=== PATIENT | female | born 1950 | race Caucasian/White ===

== ENCOUNTER 2019-04-14 14:02 | Inpatient (IN) | payer OTHER ==
[~2019-04-14] VITALS: Ht 167.6 cm; Wt 83.5 kg
[2019-04-14] VITALS (8 sets, daily range): BP systolic 90–150; BP diastolic 62–77
[~2019-04-14 14:02] MED LIST: ATENOLOL50 MG PO; GABAPENTIN300 MG PO; LEVOTHYROXINE112 MCG PO
[2019-04-14] MEDS ORDERED: ONDANSETRON HCL INJ 2MG/ML 2ML 2 MG/ML VIAL IV PRN (14:30)
[2019-04-14] MEDS ORDERED: SODIUM CHLORIDE 0.9% 1000ML 1,000 ML IV SCH (14:30)
[2019-04-14] MEDS ORDERED: HYDRALAZINE HCL 20 MG/ML VIAL IV PRN (14:30)
--- NOTE | 2019-04-14 15:12 | NUR ---
WENT TO PT ROOM TO START IV PT UP IN BED AWAKE ,LAB AT BEDSIDE TO DRAW LAB IN PROCESS OF LBS BEING DRAWN PT STARTED HAVING SEIZURE ,.SEIZURES LASTED APPROXIMATELY 3 MINUTES ,TRISTAN HUA NOTIFIED AND SPOKE WITH DR FORTUNE ORDERS WRITTEN,RAPID RESPONSE CALLED
[2019-04-14] MEDS ORDERED: LORAZEPAM INJ 2 MG/ML VIAL ONE ×2 (15:31→15:39)
[2019-04-14 15:56] LABS: ALANINE AMINOTRANSFERASE 26 IU/L (0-55); ALBUMIN 3.7 g/dL (3.5-5.0); ALBUMIN/GLOBULIN RATIO 1.4 (0.8-2.0); ALKALINE PHOSPHATASE 96 IU/L (40-150); ANION GAP 19.8 mmol/L (8-16); BLOOD UREA NITROGEN 9 mg/dL (7-26); BUN/CREATININE RATIO 14 (6-25); CALCIUM 8.5 mg/dL (8.4-10.2); CARBON DIOXIDE 16 mmol/L (22-29); CHLORIDE 87 mmol/L (98-107); CREATININE, SERUM 0.65 mg/dL (0.57-1.11); EST GLOMERULAR FILTRATION RATE > 60 ML/MIN (60-); GLUCOSE 191 mg/dL (74-118); MAGNESIUM 2.1 MG/DL (1.3-2.1); PHOSPHORUS 3.8 MG/DL (2.3-4.7); POTASSIUM 3.8 mmol/L (3.5-5.1)
[2019-04-14 15:57] LABS: SODIUM 119 mmol/L (136-145)
[2019-04-14] MEDS ORDERED: MIDAZOLAM HCL 2 MG/2 ML VIAL ONE ×2 (16:03→16:17)
[2019-04-14] MEDS ORDERED: SODIUM CHLORIDE 3% 500 ML IV ONE (16:15)
[2019-04-14 16:36] LABS: AMYLASE 47 U/L (25-125); LIPASE 14 U/L (8-78)
[2019-04-14] MEDS ORDERED: ETOMIDATE 2 MG/ML 10 ML INJ IV ONE (16:48)
[2019-04-14] MEDS ORDERED: SODIUM CHLORIDE 3% 500 ML BAG IV ONE (16:49)
[2019-04-14] MEDS ORDERED: SUCCINYLCHOLINE 200 MG/10 ML SYR IV ONE ×2 (16:49)
--- NOTE | 2019-04-14 17:50 | Diagnostic Imaging Report ---
Chest, 1 view, 04/14/2019. History: ET tube repositioning. Comparison: X-ray from earlier today. Findings: ET tube has been retracted and now terminates at the level of the clavicles. Left IJ central line is unchanged in position. The cardiomediastinal silhouette and pulmonary vasculature are within normal limits for a portable exam. Bilateral patchy pulmonary opacities are unchanged. There are no acute osseous or soft tissue abnormalities. Impression: ET tube in proper position. Signed by: Yared Ohara on 04/14/2019 5:46 PM
[2019-04-14 18:18] LABS: ANION GAP 12.1 mmol/L (8-16); BLOOD UREA NITROGEN 8 mg/dL (7-26); BUN/CREATININE RATIO 15 (6-25); CALCIUM 7.7 mg/dL (8.4-10.2); CARBON DIOXIDE 20 mmol/L (22-29); CHLORIDE 92 mmol/L (98-107); CREATININE, SERUM 0.54 mg/dL (0.57-1.11); EST GLOMERULAR FILTRATION RATE > 60 ML/MIN (60-); GLUCOSE 103 mg/dL (74-118); POTASSIUM 3.1 mmol/L (3.5-5.1); SODIUM 121 mmol/L (136-145)
[2019-04-14] MEDS ORDERED: POTASSIUM CHLORIDE 20MEQ/100ML 200 ML IV ONE (18:45)
[2019-04-14] MEDS ORDERED: FAMOTIDINE 20 MG/2 ML VIAL IV ONE (18:49)
--- NOTE | 2019-04-14 18:56 | Diagnostic Imaging Report ---
EXAMINATION: CHEST SINGLE (PORTABLE) INDICATION: ^tube placement ^Y COMPARISON: Chest radiograph 12/29/2018 FINDINGS: AP view TUBES and LINES: Endotracheal tube with tip in the proximal right mainstem bronchus. Left IJ central venous catheter with tip overlying the mid SVC. Additional metastatic linear catheters overlying the upper neck. LUNGS: Lungs are well inflated. New patchy airspace opacities in both medial upper lobes and lower lobes. PLEURA: No pleural effusion or pneumothorax. HEART AND MEDIASTINUM: The cardiomediastinal silhouette is unremarkable.. BONES AND SOFT TISSUES: No acute osseous lesion. Soft tissues are unremarkable. UPPER ABDOMEN: No free air under the diaphragm. IMPRESSION: Interval intubation with tip in the proximal right mainstem bronchus. Recommend retraction of at least 3.2 cm. New left IJ central venous catheter with tip overlying the mid SVC. New bilateral airspace opacities suggestive of a combination of atelectasis and aspiration. These findings were communicated to Mr. Kendall, nurse, on 04/14/2019 at 5:20 PM. The endotracheal tube was already retrieved and a new x-ray would be obtained. Signed by: Dr. Mireya Leal M.D. on 04/14/2019 5:26 PM
[2019-04-14] MEDS ORDERED: PIPER-TAZ 3.375 GM 50 ML IV SCH (19:00)
[2019-04-14] MEDS ORDERED: LEVETIRACETAM 500MG/5ML VIAL 500 MG in SODIUM CHLORIDE 0.9% 100 ML 100 ML IV ONE (19:00)
[2019-04-14 19:29] LABS: ABG PH 7.36 (7.31-7.41)
[2019-04-14 19:30] LABS: ABG HCO3 23 mmol/L (23-28); ABG PCO2 41 mmHg (41-51); ABG PO2 250 mmHg (80-105)
--- NOTE | 2019-04-14 19:30 | NUR ---
PATIENT WAS RECEIVED IN SUPINE POSITION, FAMILY AT BEDSIDE, ON FENTANYL 100MCG/HR DRIP,VERSED 5MG/HR, 3%NS AT 30CC/HR, VENT SETTINGS 100% PEEP 5, RR 15, TV 450, PRVC SETTING, BRASS POURER AT BEDSIDE, PATIENT AROUSABLE TO PAINFUL STIMULI.
[2019-04-14 19:33] LABS: AMPHETAMINES SCREEN,URINE NEGATIVE (NEGATIVE); BENZODIAZEPINES SCREEN,URINE NEGATIVE (NEGATIVE); PHENCYCLIDINE SCREEN,URINE NEGATIVE (NEGATIVE)
[2019-04-14 19:55] LABS: BILIRUBIN,URINE NEGATIVE (NEGATIVE); CLARITY,URINE CLEAR (CLEAR); COLOR,URINE YELLOW (YELLOW); KETONES,URINE NEGATIVE (NEGATIVE); LEUKOCYTE ESTERASE ,URINE NEGATIVE (NEGATIVE); NITRITE,URINE NEGATIVE (NEGATIVE); PROTEIN,URINE DIPSTICK TRACE (NEGATIVE); URINE UROBILINOGEN 0.2 mg/dL (0.2 - 1)
[2019-04-14 19:56] LABS: BACTERIA,URINE MODERATE /HPF
[2019-04-14 20:16] LABS: POTASSIUM,URINE 58.8 mmol/L; SODIUM,URINE 75 mmol/L
[2019-04-14 20:24] LABS: BASOPHILS % 0.2 % (0.0-1.0); EOSINOPHILS % 0.1 % (0.0-6.0); HEMATOCRIT 29.6 % (34.2-44.1); HEMOGLOBIN 10.6 g/dL (12.0-16.0); LYMPHOCYTES # (AUTO) 1.7 (1.0-3.2); LYMPHOCYTES % 13.2 % (18.0-39.1); MEAN CORPUSCULAR HEMOGLOBIN 30.2 pg (28-32); MEAN CORPUSCULAR HGB CONC 35.8 g/dL (31-35); MEAN CORPUSCULAR VOLUME 84.3 fL (81-99); MONOCYTES # (AUTO) 0.7 (0.2-0.8); MONOCYTES % 5.7 % (4.4-11.3); NEUTROPHILS # (AUTO) 10.1 (2.1-6.9); NEUTROPHILS % 80.2 % (38.7-80.0); PLATELET COUNT 267 x10e3/uL (140-360); RED BLOOD COUNT 3.51 x10e6/uL (3.6-5.1); RED CELL DISTRIBUTION WIDTH 13.4 % (11.7-14.4)
[2019-04-14 20:24] LABS: ANION GAP 11.2 mmol/L (8-16); BLOOD UREA NITROGEN 8 mg/dL (7-26); BUN/CREATININE RATIO 15 (6-25); CARBON DIOXIDE 22 mmol/L (22-29); CHLORIDE 92 mmol/L (98-107); CREATININE, SERUM 0.53 mg/dL (0.57-1.11); EST GLOMERULAR FILTRATION RATE > 60 ML/MIN (60-); GLUCOSE 94 mg/dL (74-118); POTASSIUM 3.2 mmol/L (3.5-5.1); SODIUM 122 mmol/L (136-145)
--- NOTE | 2019-04-14 20:30 | NUR ---
md leonor giordano, no new orders, will call back after 10pm lab draws
--- NOTE | 2019-04-14 20:36 | NUR ---
dr zaid giordano, no answer, will inform dr bartlett
[2019-04-14] MEDS ORDERED: FENTANYL CITRATE INJ 2000 MCG in SODIUM CHLORIDE 0.9% 210 ML IV PRN (21:15)
[2019-04-14] MEDS: MIDAZOLAM HCL 25 MG in SODIUM CHLORIDE 0.9% 45 ML IV PRN ×2 (21:15→22:00)
--- NOTE | 2019-04-14 21:21 | NUR ---
dr bartlett paged and returned phone call, read back abg results, instructed to wean 02 concentration to 60% if possible, start lovenox 40mg sq daily, spoke to dr bartlett in regards to not being able to reach dr mar, dr bartlett stated he will address that . Addendum: 04/14/19 at 2133 by Chris Leonard RN read back line placement from chest xray, gave orders for ok to use cvc/picc line
[2019-04-14] MEDS: AZITHROMYCIN 250MG/NS 100 ML 100 ML IV SCH (21:48)
--- NOTE | 2019-04-14 22:16 | History and Physical ---
HISTORY OF PRESENT ILLNESS: This patient came into the emergency room through another ER with hyponatremia and acute mental status changes. The patient was transferred from a [place] by see ambulatory services from the outlying ER. When she was seen in the ER, the patient had a hyponatremia of 122. She was started to have altered mental status. She had walked into the ER with no complications. The patient did have a history of nausea and vomiting and diarrhea for the last 24 hours. The patient was feeling fine except for the fact that she was getting mental status changes and the reason for being in the ER. The patient was transferred here and while in transport, the patient was under room, had an apparent seizure noted for about 2 minutes. A rapid response was called, and central line was started and the patient also was intubated. The patient had a similar episode in the last admission with hyponatremia. PAST SURGICAL HISTORY: 1. History of thyroid surgery, otherwise noncontributory. The patient also has a history of hyponatremia. 2. History of hypothyroidism. 3. History of hypertension to medicine she takes at home. MEDICATION: At home, atenolol 50 mg, gabapentin 300 mg, and levothyroxine 112 mcg. As far as gabapentin, the patient is taking it 3 times a day of 300 mg. She was up to 5 tablets a day, but she had cut it down to 4. REVIEW OF SYSTEMS: Negative for chest pain. No shortness of breath. Positive for nausea, vomiting, and diarrhea. No constipation. No rectal bleeding. No hematochezia. No hematemesis. The patient has been dehydrated for the last 24 hours or so. No diplopia. No blurry vision. No history of seizures in the past. PHYSICAL EXAMINATION: GENERAL: The patient is intubated at this time. VITAL SIGNS: Not recorded at this time. HEENT: The patient is intubated. CVS: S1 and S2 normal. Tachycardic. ABDOMEN: Nontender and nondistended, soft. EXTREMITIES: No clubbing, no cyanosis, no edema. LABORATORY DATA: Labs we have right now; the patient's sodium is 119, potassium 3.8, BUN of 9, creatinine 0.65, magnesium is 2.1, calcium 8.5, phosphorus 3.8, total protein 6.3. CBC from the imaging summoned from the other ER shows white count of 13,000 and hemoglobin of 12 and hematocrit of 35.9. The patient's urine was negative. The patient's CT scan done for acute mental status and altered mental status in the ER, outside in the ER, it was mild generalized parenchymal atrophy. Tiny basal ganglia lacunar infarct. No evidence of CT evidence of intracranial hemorrhage or acute strokes. The chest x-ray showed minimal peribronchial cuffing. Bronchitis is suspected without segmental bronchopneumonia. ASSESSMENT: At this time is; 1. Grand mal seizures. 2. Hyponatremia. 3. History of hyponatremia in the past. 4. History of hypertension. 5. History of hypothyroidism. PLAN: At this time would be to correct the sodium. Dr. Casiano is on consult. will be given. Also, we will continue monitoring her thyroid status and also her volume status. The patient will be given fluids and resuscitation. Every protection for seizures will be done and consult with Dr. Majano will be done too. Further recommendation per clinical course. We will continue to monitor the patient. Final diagnoses on discharge; hyponatremia, encephalopathy of unknown origin, hypothyroidism, and hypertension. Plan would be to continue monitor the patient. Further recommendation per clinical course and we will closely monitor the patient's lytes. MD CLARENCE Raymond/IVANA /[id number]
--- NOTE | 2019-04-14 22:45 | Consultation ---
DATE OF CONSULTATION: 04/14/2019 HISTORY OF PRESENT ILLNESS: A 69-year-old female who apparently according to family, developed severe nausea and vomiting after eating her dinner as well as diarrhea, which was profuse, which lasted all night. This morning, patient was found to be "incoherent, " but according to son-in-law, she was taken to a local emergency room, where she was found to have a serum sodium of 122. She had a CT scan of the brain done which was reported negative. Her white count was elevated at 13.8, hemoglobin was 12. Sodium was 122, potassium 3.8, calcium 9.2, creatinine 0.7, and total bilirubin 0.8. She was subsequently directly admitted here and she was somewhat confused, but talking, following commands according to RN and then she went into a grand mal seizure by the time I walked into the room, Rapid Response had already been called. The patient was quite agitated. She had a teeth clenched, breathing rapidly, did not open her eyes to any verbal stimuli, the nurses were holding her down, 1 mg Ativan was given, 2 mg Ativan was given in addition to that. The ER physician is right now in the process of intubating her and placing a central line. LABORATORY TESTS: Returned. Serum sodium was found to be 119, potassium 3.8, bicarbonate 16, this is post seizure, creatinine 0.65, phosphorus 3.8, magnesium 2.1, and calcium 8.5. I have sent a urine drug screen. CBC is pending. Chest x-ray is pending. The CT scan done at the [facility] showed mild generalized brain parenchymal atrophy related to patient's age, tiny bilateral basal ganglia lacunar infarcts, no evidence of intracranial hemorrhages, masses, or stroke. HOME MEDICATIONS: Include atenolol and levothyroxine. PAST MEDICAL HISTORY: She has existing history of hypothyroidism, recent history of hyponatremia, which was also precipitated by nausea, vomiting, and diarrhea. She presented with food poisoning, which was her presenting complaint. ALLERGIES: SHE IS ALLERGIC TO PENICILLIN. PHYSICAL EXAMINATION: VITAL SIGNS: Current blood pressure 119/90, pulse rate 110, and respiratory rate 24. HEAD AND NECK: Patient's teeth are clenched. Limited exam. LUNGS: Harsh vesicular breath sounds, end expiratory rhonchi, some scattered rales. HEART: Tachycardic. ABDOMEN: Soft, nontender. EXTREMITIES: Lower extremity, no edema. IMPRESSION: Hyponatremia with history of sudden onset nausea, vomiting, and diarrhea, this is most likely acute, status post grand mal seizure, now sedated with Ativan, intubated, currently IV normal saline running, we will give 3% hypertonic saline 100 mL over 30 minutes and then start at 30 mL an hour. We will do sodium levels q.2 hours. The metabolic acidosis is secondary to grand mal seizure. We will repeat chemistries and reassess. I ordered amylase, lipase, ammonia level and urine drug screen. CBC pending. Discussed with family members. We will limit the rate of rise in serum sodium by no more than 6 mEq in the next 12-24 hours. MD SIMRAN Pang/IVANA /[id number]
--- NOTE | 2019-04-14 22:48 | Diagnostic Imaging Report ---
EXAMINATION: Head CT without contrast. HISTORY:Altered mental status. COMPARISON:CT head from 12/29/2018. TECHNIQUE: Multidetector axial images were obtained from the foramen magnum to the vertex without contrast. The images were reconstructed using brain and bone algorithms. Thin section brain images were reformatted into coronal and sagittal planes. Dose modulation, iterative reconstruction, and/or weight based adjustment of the mA/kV was utilized to reduce the radiation dose to as low as reasonably achievable. Intravenous contrast: None IMAGE QUALITY: Acceptable. FINDINGS: Skull/scalp: No lytic or blastic. lesions. No surgical changes. Parenchyma: No abnormal density. No acute hemorrhage, mass or acute major vascular territorial infarct. Arteries: No density suggestive of thrombosis. Dural sinuses: No abnormal density suggestive of thrombosis. Ventricles: No hydrocephalus or displacement. Extra-axial spaces: No abnormal density. Brain volume: Mild generalized age-related cerebral volume loss. Craniocervical junction: No mass, Chiari malformation, or basilar invagination. Sella: No mass. Paranasal/mastoid sinuses: Under pneumatization, sclerosis and opacification of bilateral mastoid air cells possibly related to chronic inflammatory process. IMPRESSION: No acute intracranial abnormality. No significant change since CT head from 12/29/2018. Chronic findings: Generalized age-related cerebral volume loss. Signed by: Dr. Reena Martinez M.D. on 04/14/2019 10:45 PM
--- NOTE | 2019-04-14 23:00 | NUR ---
RESPIRATORY-SORAIDA AWARE OF GOAL OF O2 CONCENTRATION OF 60%, WILL WEAN ACCORDINGLY
[2019-04-14] MEDS: AZTREONAM 1 GM/NS 50 ML 50 ML IV SCH (23:07)
[2019-04-14] MEDS: ENOXAPARIN SOD INJ 40 MG/0.4 ML SYR SC SCH (23:07)
[2019-04-14 23:24] LABS: ANION GAP 9.4 mmol/L (8-16); BLOOD UREA NITROGEN 7 mg/dL (7-26); BUN/CREATININE RATIO 14 (6-25); CARBON DIOXIDE 22 mmol/L (22-29); CHLORIDE 98 mmol/L (98-107); CREATININE, SERUM 0.51 mg/dL (0.57-1.11); EST GLOMERULAR FILTRATION RATE > 60 ML/MIN (60-); GLUCOSE 93 mg/dL (74-118); POTASSIUM 3.4 mmol/L (3.5-5.1); SODIUM 126 mmol/L (136-145)
--- NOTE | 2019-04-14 23:35 | Consultation ---
DATE OF CONSULTATION: 04/14/2019 Pulmonary Critical Care Consultation REASON FOR THE CONSULT: Status post arrest, seizure. The patient is intubated. HISTORY OF PRESENT ILLNESS: Ms. Kiran is a 69-year-old female with no significant past medical history, was admitted through the ER with complaints of nausea and vomiting. The daughter reported that these symptoms have been going on for the last few days. We checked the sodium and it was 119. She presented at the outside ER. She denies any complaints of chest pain. She had nausea and vomiting. She was in the hospital in December of 2018, was seen by Dr. Newsome then, at that time also she presented with hyponatremia. REVIEW OF SYSTEMS: Unable to elicit any as patient is intubated, sedated. PAST MEDICAL HISTORY: Thyroidectomy, hypertension, and hypothyroidism. PAST SURGICAL HISTORY: Thyroidectomy. FAMILY AND SOCIAL HISTORY: Quit smoking. Denies any alcohol use. PHYSICAL EXAMINATION: VITAL SIGNS: Temperature 97.5, pulse of 75, blood pressure 150/68, respiratory rate of 18, O2 saturation 100%, she is on 100% FiO2. HEENT: Head is atraumatic and normocephalic. NECK: Supple. CHEST: Clear to auscultation bilaterally. ABDOMEN: Soft. EXTREMITIES: No pedal edema. NEUROLOGIC: Awake, sedated, and intubated. LABORATORY DATA: White count of 10,000, hemoglobin 12.4, and platelets 334. Chemistry; sodium 131, potassium 3.1, chloride 92, BUN 8, creatinine 0.54. Sodium was 119 on 04/14/2019 earlier. Chest x-ray, I have reviewed the images, it is showing left lower lobe infiltrate. ASSESSMENT: Ms. Kiran is a 69-year-old female. She presented with nausea, vomiting, possibility of aspiration pneumonitis, generalized seizures witnessed, and the patient was hyponatremic. Current problem: 1. Acute hyponatremia. 2. Possibly left lower lobe infiltrate, left lower lobe pneumonia, aspiration versus community-acquired pneumonia. 3. Generalized tonic-clonic seizure witnessed. No history of seizure. PLAN: 1. Continue the patient on sodium replacement per Nephrology recommendation. 2. Vent setting reviewed. Check ABG. 3. Start the patient on DVT prophylaxis. 4. GI prophylaxis. 5. IV antibiotics for aspiration pneumonitis. Check ABG. Repeat chest x-ray in a.m. Consider tube feeds in a.m. Critical care time spent 50 minutes. Detailed discussion was carried out with the children at bedside. MD SANAM Landa/IVANA /[id number]
--- NOTE | 2019-04-14 23:46 | NUR ---
orders received to stop 3%NS
[2019-04-15] VITALS (53 sets, daily range): BP systolic 74–121; BP diastolic 46–77
--- NOTE | 2019-04-15 00:24 | Diagnostic Imaging Report ---
EXAM: CT Chest WITHOUT contrast INDICATION: ^shortness of breath ^[id number] ^0 COMPARISON: Chest x-ray dated 04/14/2019 TECHNIQUE: Chest was scanned utilizing a multidetector helical scanner from the lung apex through the level of the adrenal glands without administration of IV contrast. Absence of intravenous contrast decreases sensitivity for detection of lymphadenopathy and vascular pathology. Coronal and sagittal reformations were obtained. Routine protocol was performed. IV CONTRAST: None COMPLICATIONS: None RADIATION DOSE: Total DLP: 498.10 mGy*cm Estimated effective dose: (DLP x 0.014 x size factor) mSv CTDIvol has been reviewed. It is below the limits set by the Radiation Protocol Committee (RPC). FINDINGS: LINES/ TUBES: Endotracheal tube in place with tip terminating in the mid trachea. Left IJ central line in place with tip terminating in inferior SVC. LUNGS AND AIRWAYS: Mild upper lobe predominant centrilobular emphysematous changes. Bilateral lower lobe consolidations with air bronchograms. Airways are normal. PLEURA: The pleural spaces are clear. HEART AND MEDIASTINUM: The thyroid gland is normal. No axillary lymphadenopathy. Several subcentimeter supraclavicular supraclavicular and mediastinal lymph nodes, likely reactive. Limited for evaluation of hilar regions without intravenous contrast. The heart is normal in size.. There is no pericardial effusion. Mild atherosclerotic calcification of aorta and coronary arteries. Air within left brachiocephalic vein, likely iatrogenic. Upper esophageal air-fluid level, could represent gastroesophageal reflux. UPPER ABDOMEN: Unremarkable. BONES: Age indeterminate mild T12 superior endplate compression deformity. SOFT TISSUES: Unremarkable. IMPRESSION: Bilateral lower lobe dependent consolidations, representing combination of aspiration/pneumonia and atelectasis. Signed by: Dr. Evin Mendes MD on 04/15/2019 12:21 AM
[2019-04-15] MEDS: MIDAZOLAM HCL 25 MG in SODIUM CHLORIDE 0.9% 45 ML IV PRN (01:11)
[2019-04-15 01:40] LABS: ANION GAP 10.6 mmol/L (8-16); BLOOD UREA NITROGEN 7 mg/dL (7-26); BUN/CREATININE RATIO 14 (6-25); CALCIUM 8.1 mg/dL (8.4-10.2); CARBON DIOXIDE 22 mmol/L (22-29); CHLORIDE 100 mmol/L (98-107); CREATININE, SERUM 0.51 mg/dL (0.57-1.11); EST GLOMERULAR FILTRATION RATE > 60 ML/MIN (60-); GLUCOSE 90 mg/dL (74-118); POTASSIUM 3.6 mmol/L (3.5-5.1); SODIUM 129 mmol/L (136-145)
--- NOTE | 2019-04-15 01:52 | NUR ---
SPOKE TO DR PHILLIPS, START D5W AT 70CC/HR AND REDRAW IN 2 HOURS BMP
[2019-04-15] MEDS ORDERED: DEXTROSE 5% 1,000 ML IV ONE (02:03)
[2019-04-15] MEDS: DEXTROSE 5% 1,000 ML IV SCH ×2 (02:05→05:26)
[2019-04-15 04:28] LABS: BASOPHILS % 0.2 % (0.0-1.0); EOSINOPHILS % 0.4 % (0.0-6.0); HEMATOCRIT 28.6 % (34.2-44.1); HEMOGLOBIN 9.9 g/dL (12.0-16.0); LYMPHOCYTES # (AUTO) 1.2 (1.0-3.2); LYMPHOCYTES % 14.1 % (18.0-39.1); MEAN CORPUSCULAR HEMOGLOBIN 29.6 pg (28-32); MEAN CORPUSCULAR HGB CONC 34.6 g/dL (31-35); MEAN CORPUSCULAR VOLUME 85.4 fL (81-99); MONOCYTES # (AUTO) 0.6 (0.2-0.8); MONOCYTES % 6.7 % (4.4-11.3); NEUTROPHILS # (AUTO) 6.7 (2.1-6.9); PLATELET COUNT 264 x10e3/uL (140-360); RED BLOOD COUNT 3.35 x10e6/uL (3.6-5.1); RED CELL DISTRIBUTION WIDTH 13.6 % (11.7-14.4)
[2019-04-15 04:50] LABS: ALANINE AMINOTRANSFERASE 22 IU/L (0-55); ALBUMIN 2.8 g/dL (3.5-5.0); ALBUMIN/GLOBULIN RATIO 1.5 (0.8-2.0); ALKALINE PHOSPHATASE 75 IU/L (40-150); ANION GAP 10.2 mmol/L (8-16); BLOOD UREA NITROGEN 6 mg/dL (7-26); BUN/CREATININE RATIO 11 (6-25); CALCIUM 8.1 mg/dL (8.4-10.2); CARBON DIOXIDE 23 mmol/L (22-29); CHLORIDE 99 mmol/L (98-107); CREATININE, SERUM 0.54 mg/dL (0.57-1.11); EST GLOMERULAR FILTRATION RATE > 60 ML/MIN (60-); GLUCOSE 100 mg/dL (74-118); POTASSIUM 3.2 mmol/L (3.5-5.1); SODIUM 129 mmol/L (136-145)
[2019-04-15] MEDS ORDERED: POTASSIUM CHLORIDE 20MEQ/100ML 200 ML IV ONE (05:15)
--- NOTE | 2019-04-15 05:18 | NUR ---
SPOKE TO DR PHILLIPS, CHANGE D5W TO 100CC/HR, GIVE 40MEQ KCL IVPB OVER 4 HOURS, ADD MAG LAB, IF MAG IS 1.8 OR LESS GIVE 2G MAG SULFATE IVPB X1, CHANGE BMP TO EVERY 4 HOURS, TELEPHONE ORDERS READ BACK.
[2019-04-15] MEDS ORDERED: MAGNESIUM SULFATE 2GM/50ML 50 ML IV ONE (06:15)
[2019-04-15] MEDS: AZTREONAM 1 GM/NS 50 ML 50 ML IV SCH ×3 (06:36→20:50)
--- NOTE | 2019-04-15 07:00 | NUR ---
rounds done with luis alberto serrano, informed of upcoming lab draws and need to inform dr ly of attending change. family at bedside.
[2019-04-15] MEDS ORDERED: SODIUM CHLORIDE 0.9% 1000ML 1,000 ML IV SCH (08:30)
[2019-04-15] MEDS ORDERED: SODIUM CHLORIDE 0.9% 1000ML 1,000 ML ONE (08:35)
[2019-04-15] MEDS ORDERED: SODIUM CHLORIDE 0.9% 1000ML 1,000 ML IV ONE ×2 (08:45→10:00)
[2019-04-15] MEDS: ENOXAPARIN SOD INJ 40 MG/0.4 ML SYR SC SCH (09:30)
[2019-04-15] MEDS ORDERED: DEXMEDETOMIDINE 200MCG/NS 50ML 50 ML IV ONE ×2 (09:34→23:35)
[2019-04-15] MEDS: ALBUTEROL/IPRATROPIUM 3 ML NEB NEB SCH ×3 (09:37→19:45)
[2019-04-15 09:39] LABS: ANION GAP 10.1 mmol/L (8-16); BLOOD UREA NITROGEN 6 mg/dL (7-26); BUN/CREATININE RATIO 11 (6-25); CARBON DIOXIDE 23 mmol/L (22-29); CHLORIDE 99 mmol/L (98-107); CREATININE, SERUM 0.55 mg/dL (0.57-1.11); EST GLOMERULAR FILTRATION RATE > 60 ML/MIN (60-); GLUCOSE 107 mg/dL (74-118); POTASSIUM 4.1 mmol/L (3.5-5.1); SODIUM 128 mmol/L (136-145)
[2019-04-15] MEDS ORDERED: ALBUTEROL/IPRATROPIUM 3 ML NEB ONE (09:39)
[2019-04-15] MEDS ORDERED: NOREPINEPHRINE 8 MG/D5W 250 ML 250 ML ONE (09:55)
[2019-04-15] MEDS ORDERED: DEXMEDETOMIDINE HCL 200 MCG in SODIUM CHLORIDE 0.9% 50ML 48 ML IV PRN (10:00)
[2019-04-15] MEDS ORDERED: DEXMEDETOMIDINE IV ONE (11:08)
[2019-04-15] MEDS ORDERED: [UNRECOGNIZED DRUG - OTHER] IV ONE (11:08)
--- NOTE | 2019-04-15 12:29 | NUR ---
Nutrition Intervention Note RD Recommendation(s) for Physician: - If pt remains intubated, recommend TF of Vital HP at 10 ml/hr. Advance as tolerated to goal rate of 65 ml/hr (provides 1560 kcal and 137 gm protein). - Water flushes and fluid management per MD. Plan of Care: RD following, TF rec's, monitoring for tolerance and adequacy Nutrition reason for involvement: MD Consult, Nutrition Risk Trigger, Intubation RD Assessment 04/15: 69 YOF admitted for hyponatremia and AMS, pt s/p seizure upon admit requiring intubation. Pt remains intubated, currently sedated, and on Levophed at 5 mcg/min. Family at bedside denies any wt loss, GI distress, or poor intake recently. Pt appears well nourished. Pt discussed during ICU rounds, rec's discussed with RN Principal Problems/Diagnoses: Hyponatremia, AMS PMH: Hypothyroidism, HTN GI: LBM 04/14- diarrhea Skin: intact Labs: 04/15: Na 128, K 4.1, BUN 6, Cr 0.55, Gluc 107, Mg 2.6 Meds: precedex, levophed, fentanyl, pepcid Ht: 66 in Wt: 184 lb BMI: 29.7 IBW: 130 lb Malnutrition Evaluation (04/15/19) The patient does not meet criteria for a specified degree of malnutrition at this time. Will re-evaluate at follow-up as appropriate. Nutrition Prescription (Diet Order): NPO Estimated Nutritional Needs: 2564-5536 calories/day (18-20 kcal/kg CBW) 108-167 g protein/day (1.3-2 g pro/kg CBW) Diet Adequacy: Not meeting calorie needs, Not meeting protein needs Diet Education Needs Assessment: Diet education not indicated, patient on temporary/transition diet. Nutrition Care Level: Mod Nutrition Diagnosis: Inadequate energy and protein intake related to impaired gastric passage as evidenced by NPO on vent and requiring EN. Goal: Patient will meet 75-100% of estimated needs by follow up Progress: N/A Interventions: Composition, Rate, Route, IVF, Prescription medications, Recommended Modifications, Collaboration with other providers Monitoring/Evaluation: Total energy intake, Total protein intake, Formula/Solution, IVF, Prescription medication Signed: Lilli Santos RD, LD, CNSC
--- NOTE | 2019-04-15 14:20 | Diagnostic Imaging Report ---
Exam: KUB - 2 views Clinical History: NG tube placement Comparison: None Findings: NG tube is not visualized in the abdomen or lower thorax and is likely coiled superiorly. The stomach is air-filled. Nonobstructive bowel gas pattern. No free air. The osseous structures appear unremarkable. Impression: Nonvisualization of NG tube, which is likely coiled above the [id number]. Signed by: Michelle Barreto MD on 04/15/2019 2:17 PM
[2019-04-15 15:06] LABS: ANION GAP 10.6 mmol/L (8-16); BLOOD UREA NITROGEN 5 mg/dL (7-26); BUN/CREATININE RATIO 9 (6-25); CALCIUM 7.9 mg/dL (8.4-10.2); CARBON DIOXIDE 21 mmol/L (22-29); CHLORIDE 100 mmol/L (98-107); CREATININE, SERUM 0.55 mg/dL (0.57-1.11); EST GLOMERULAR FILTRATION RATE > 60 ML/MIN (60-); GLUCOSE 148 mg/dL (74-118); POTASSIUM 3.6 mmol/L (3.5-5.1); SODIUM 128 mmol/L (136-145)
[2019-04-15] MEDS ORDERED: DEXMEDETOMIDINE 200MCG/NS 50ML 100 ML IV ONE ×2 (16:08→17:35)
[2019-04-15] MEDS ORDERED: SUCCINYLCHOLINE 200 MG/10 ML SYR ONE (17:47)
[2019-04-15] MEDS ORDERED: MIDAZOLAM HCL 2 MG/2 ML VIAL ONE (17:47)
[2019-04-15] MEDS ORDERED: ETOMIDATE 40 MG/ 20ML VIAL IV ONE (17:47)
--- NOTE | 2019-04-15 17:59 | NUR ---
In AM Patient extremely agitated trying to sit up out of bed. Pt started becoming hypotensive. Dr. Majano made aware, orders given to give 1L bolus of NS and wean off Versed and fentanyl. After MD rounded orders given for Precedex and Levophed. Dr. Casiano notified of BMP results at 1000 and 1600. Dietary made tube feed recommendation Vital HP at 10cc/hr while on Levo. Chest x ray ordered to verify placement of NG tube that was placed on previous shift. Per x ray results, NG tube removed. Pt agitated upon attempted reinsertion, will attempt again when patient is calm. Dr. Majano informed of inability to wean fentanyl off.
[2019-04-15] MEDS: AZITHROMYCIN 250MG/NS 100 ML 100 ML IV SCH (18:19)
[2019-04-15] MEDS ORDERED: AZITHROMYCIN ONE (18:19)
[2019-04-15] MEDS ORDERED: [UNRECOGNIZED DRUG - OTHER] ONE (18:19)
--- NOTE | 2019-04-15 19:37 | NUR ---
New Bag of Precedex hung
--- NOTE | 2019-04-15 21:00 | NUR ---
New Bag of Precedex hung
--- NOTE | 2019-04-15 23:30 | NUR ---
New Bag of Precedex hung
[2019-04-16] VITALS (29 sets, daily range): BP systolic 84–144; BP diastolic 56–99
[2019-04-16] MEDS: ALBUTEROL/IPRATROPIUM 3 ML NEB NEB SCH ×5 (00:30→19:15)
[2019-04-16] MEDS: DEXTROSE 5% 1,000 ML IV SCH ×2 (01:00→08:18)
--- NOTE | 2019-04-16 02:00 | NUR ---
New Bag of Precedex hung
[2019-04-16] MEDS ORDERED: DEXMEDETOMIDINE 200MCG/NS 50ML 0 ML IV ONE (02:06)
[2019-04-16] MEDS: NOREPINEPHRINE 8 MG/D5W 250 ML 250 ML IV SCH ×2 (03:30→12:30)
[2019-04-16] MEDS: AZTREONAM 1 GM/NS 50 ML 50 ML IV SCH ×3 (04:15→20:33)
[2019-04-16 04:58] LABS: BASOPHILS # (AUTO) 0.1 (0.0-0.1); BASOPHILS % 0.6 % (0.0-1.0); EOSINOPHILS # (AUTO) 0.1 (0.0-0.4); HEMATOCRIT 28.3 % (34.2-44.1); HEMOGLOBIN 9.5 g/dL (12.0-16.0); LYMPHOCYTES % 9.3 % (18.0-39.1); MEAN CORPUSCULAR HEMOGLOBIN 29.5 pg (28-32); MEAN CORPUSCULAR HGB CONC 33.6 g/dL (31-35); MEAN CORPUSCULAR VOLUME 87.9 fL (81-99); MONOCYTES # (AUTO) 0.6 (0.2-0.8); MONOCYTES % 5.6 % (4.4-11.3); NEUTROPHILS # (AUTO) 8.5 (2.1-6.9); NEUTROPHILS % 82.9 % (38.7-80.0); PLATELET COUNT 287 x10e3/uL (140-360); RED BLOOD COUNT 3.22 x10e6/uL (3.6-5.1); RED CELL DISTRIBUTION WIDTH 13.8 % (11.7-14.4)
[2019-04-16 05:24] LABS: BLOOD UREA NITROGEN < 5 mg/dL (7-26); CALCIUM 7.9 mg/dL (8.4-10.2); CARBON DIOXIDE 23 mmol/L (22-29); CHLORIDE 99 mmol/L (98-107); EST GLOMERULAR FILTRATION RATE > 60 ML/MIN (60-); GLUCOSE 148 mg/dL (74-118); MAGNESIUM 1.8 MG/DL (1.3-2.1); SODIUM 129 mmol/L (136-145)
[2019-04-16 05:25] LABS: BUN/CREATININE RATIO 10 (6-25)
[2019-04-16] MEDS ORDERED: DEXMEDETOMIDINE 200MCG/NS 50ML 50 ML IV ONE (06:29)
--- NOTE | 2019-04-16 06:31 | NUR ---
New Bag of Precedex hung
[2019-04-16] MEDS ORDERED: POTASSIUM CHLORIDE 20MEQ/100ML 200 ML IV ONE ×2 (07:30→18:45)
--- NOTE | 2019-04-16 07:36 | Diagnostic Imaging Report ---
EXAMINATION: CHEST SINGLE (PORTABLE) INDICATION: SOB. COMPARISON: CT chest 04/14/2019 and chest radiograph 04/14/2019. FINDINGS: AP view Exam is limited by portable technique and motion artifact. TUBES and LINES: Endotracheal tube terminates approximately 4.4 cm above the jaimie. Left IJ central venous catheter with tip overlying the mid SVC. LUNGS: Low lung volumes which decreases sensitivity and specificity for pathology. New consolidative opacity in the right upper lung, although somewhat obscured by overlying structures. Persistent patchy opacities in the bilateral lower lungs, left greater than right. PLEURA: No pleural effusion or pneumothorax. HEART AND MEDIASTINUM: The cardiomediastinal silhouette is unremarkable.. BONES AND SOFT TISSUES: No acute osseous abnormality. UPPER ABDOMEN: No free air under the diaphragm. IMPRESSION: Multifocal opacities, new in the right upper lung and similar in the bilateral lower lungs, suspicious for pneumonia. Signed by: Dr. Cory Romero MD on 04/16/2019 7:32 AM
[2019-04-16] MEDS ORDERED: [UNRECOGNIZED DRUG - OTHER] IV ONE (07:50)
[2019-04-16] MEDS ORDERED: DEXMEDETOMIDINE IV ONE (07:50)
[2019-04-16] MEDS: ENOXAPARIN SOD INJ 40 MG/0.4 ML SYR SC SCH (08:19)
[2019-04-16] MEDS ORDERED: LEVOTHYROXINE SODIUM 100 MCG/VIAL IV NR (09:15)
[2019-04-16] MEDS: SODIUM CHLORIDE 0.9% 1000ML 1,000 ML IV SCH (09:53)
[2019-04-16] MEDS ORDERED: DEXAMETHASONE SOD PHOS INJ 4 MG/ML VIAL IV NR (11:15)
[2019-04-16] MEDS ORDERED: DEXAMETHASONE SOD PHOS INJ 4 MG/ML VIAL IV ONE (11:30)
[2019-04-16] MEDS ORDERED: FUROSEMIDE INJ 10 MG/ML 2 ML VIAL IV NR ×2 (14:30→21:00)
--- NOTE | 2019-04-16 17:19 | NUR ---
ST Note: Order for bedside swallow eval noted. According to available documentation, it appears pt was intubated just under 24 hours and extubated this AM approximately 11:00. Swallow eval deferred for today secondary to high risk of aspiration. Will complete bedside swallow eval Thursday04/18/19.
--- NOTE | 2019-04-16 17:38 | NUR ---
0730- Dr. Moran notified of BMP results. New orders given. Weaning pt off fentanyl drip and Precedex to prepare for spontaneous breathing trials. 1000- Dr. Marsh notified of inability to place NG/OG tube. 1050- Pt extubated per Dr. Block and placed on 4L NC. Will continue to monitor the patient. Orders placed by for swallow study. 1500- Dr. Moran notified of patients sodium results. One time order given for Lasix.
[2019-04-16 17:52] LABS: ABG HCO3 23 mmol/L (23-28); ABG PCO2 39 mmHg (41-51); ABG PH 7.37 (7.31-7.41); ABG PO2 108 mmHg (80-105)
[2019-04-16 17:53] LABS: ANION GAP 13.1 mmol/L (8-16); BLOOD UREA NITROGEN 5 mg/dL (7-26); BUN/CREATININE RATIO 9 (6-25); CALCIUM 8.5 mg/dL (8.4-10.2); CARBON DIOXIDE 24 mmol/L (22-29); CHLORIDE 97 mmol/L (98-107); CREATININE, SERUM 0.54 mg/dL (0.57-1.11); EST GLOMERULAR FILTRATION RATE > 60 ML/MIN (60-); GLUCOSE 145 mg/dL (74-118); POTASSIUM 3.1 mmol/L (3.5-5.1); SODIUM 131 mmol/L (136-145)
[2019-04-16] MEDS: AZITHROMYCIN 250MG/NS 100 ML 100 ML IV SCH (18:00)
--- NOTE | 2019-04-16 18:15 | NUR ---
Student Affairs Vice President informed of patients sodium 131 and potassium 3.1. Orders given.
[2019-04-17] VITALS (21 sets, daily range): BP systolic 108–153; BP diastolic 58–90
[2019-04-17] MEDS: ALBUTEROL/IPRATROPIUM 3 ML NEB NEB SCH ×4 (01:45→19:05)
[2019-04-17] MEDS: AZTREONAM 1 GM/NS 50 ML 50 ML IV SCH ×3 (03:24→19:48)
[2019-04-17] MEDS: SODIUM CHLORIDE 0.9% 1000ML 1,000 ML IV SCH (03:24)
[2019-04-17 06:05] LABS: BASOPHILS % 0.1 % (0.0-1.0); EOSINOPHILS % 0.1 % (0.0-6.0); HEMOGLOBIN 8.9 g/dL (12.0-16.0); LYMPHOCYTES # (AUTO) 1.2 (1.0-3.2); MEAN CORPUSCULAR HEMOGLOBIN 29.9 pg (28-32); MEAN CORPUSCULAR HGB CONC 34.2 g/dL (31-35); MEAN CORPUSCULAR VOLUME 87.2 fL (81-99); MONOCYTES # (AUTO) 0.6 (0.2-0.8); MONOCYTES % 6.4 % (4.4-11.3); NEUTROPHILS # (AUTO) 7.9 (2.1-6.9); NEUTROPHILS % 80.4 % (38.7-80.0); PLATELET COUNT 264 x10e3/uL (140-360); RED BLOOD COUNT 2.98 x10e6/uL (3.6-5.1); RED CELL DISTRIBUTION WIDTH 13.8 % (11.7-14.4)
[2019-04-17 06:37] LABS: ANION GAP 12.4 mmol/L (8-16); BLOOD UREA NITROGEN 5 mg/dL (7-26); BUN/CREATININE RATIO 10 (6-25); CALCIUM 8.6 mg/dL (8.4-10.2); CARBON DIOXIDE 24 mmol/L (22-29); CHLORIDE 99 mmol/L (98-107); CREATININE, SERUM 0.48 mg/dL (0.57-1.11); EST GLOMERULAR FILTRATION RATE > 60 ML/MIN (60-); GLUCOSE 111 mg/dL (74-118); POTASSIUM 3.4 mmol/L (3.5-5.1); SODIUM 132 mmol/L (136-145)
[2019-04-17] MEDS: ENOXAPARIN SOD INJ 40 MG/0.4 ML SYR SC SCH (08:52)
[2019-04-17] MEDS ORDERED: POTASSIUM CHLORIDE 20 MEQ TAB CR PO ONE (10:26)
--- NOTE | 2019-04-17 12:00 | NUR ---
Pt complained of abdominal pain. Dr. Mcmullen informed and tube feeds placed on hold. CT scan done of abdomen. Dr. Mcmullen informed of test results. Will continue to monitor. Addendum: 04/17/19 at 1315 by Ninoska Last RN Entered in error. Please disregard the following note.
[2019-04-17] MEDS: LEVOTHYROXINE SODIUM 112 MCG TAB PO SCH (13:30)
--- NOTE | 2019-04-17 14:01 | NUR ---
0900- RN gave patient ice chips and small sip of water to evaluate ability to swallow. Patient did not desaturate, cough or show any s/s of aspiration when swallowing. 1400- Walked in to patients room to round with attending. Dressing was off of central line and central line was still sutured but pulled out. Patient states she "pulled at it because it was bothering her ear". Central line sutures were removed and dressing placed on site. PIV's x 2 were started. Patient educated on need for IV access and to not pull at them. Will continue to monitor.
[2019-04-17] MEDS: AZITHROMYCIN 250MG/NS 100 ML 100 ML IV SCH (18:04)
[2019-04-18] VITALS (8 sets, daily range): BP systolic 115–162; BP diastolic 67–97
[2019-04-18] MEDS: ALBUTEROL/IPRATROPIUM 3 ML NEB NEB SCH ×4 (01:00→19:48)
[2019-04-18] MEDS ORDERED: SODIUM CHLORIDE 0.9% 250ML 250 ML ONE ×2 (04:10→15:19)
[2019-04-18] MEDS: AZTREONAM 1 GM/NS 50 ML 50 ML IV SCH ×3 (04:30→21:05)
[2019-04-18 05:02] LABS: BASOPHILS % 0.4 % (0.0-1.0); EOSINOPHILS # (AUTO) 0.2 (0.0-0.4); EOSINOPHILS % 2.4 % (0.0-6.0); HEMOGLOBIN 9.7 g/dL (12.0-16.0); LYMPHOCYTES # (AUTO) 2.1 (1.0-3.2); LYMPHOCYTES % 26.8 % (18.0-39.1); MEAN CORPUSCULAR HEMOGLOBIN 29.3 pg (28-32); MEAN CORPUSCULAR HGB CONC 33.4 g/dL (31-35); MEAN CORPUSCULAR VOLUME 87.6 fL (81-99); MONOCYTES # (AUTO) 0.5 (0.2-0.8); MONOCYTES % 5.8 % (4.4-11.3); NEUTROPHILS # (AUTO) 5.1 (2.1-6.9); NEUTROPHILS % 64.2 % (38.7-80.0); PLATELET COUNT 339 x10e3/uL (140-360); RED BLOOD COUNT 3.31 x10e6/uL (3.6-5.1); RED CELL DISTRIBUTION WIDTH 13.8 % (11.7-14.4)
[2019-04-18 05:24] LABS: ANION GAP 10.7 mmol/L (8-16); BLOOD UREA NITROGEN < 5 mg/dL (7-26); CALCIUM 8.5 mg/dL (8.4-10.2); CARBON DIOXIDE 27 mmol/L (22-29); CHLORIDE 100 mmol/L (98-107); EST GLOMERULAR FILTRATION RATE > 60 ML/MIN (60-); GLUCOSE 102 mg/dL (74-118); POTASSIUM 3.7 mmol/L (3.5-5.1); SODIUM 134 mmol/L (136-145)
[2019-04-18 05:25] LABS: BUN/CREATININE RATIO 10 (6-25)
[2019-04-18] MEDS: LEVOTHYROXINE SODIUM 112 MCG TAB PO SCH (06:05)
[2019-04-18] MEDS: ENOXAPARIN SOD INJ 40 MG/0.4 ML SYR SC SCH (09:29)
--- NOTE | 2019-04-18 10:30 | NUR ---
Report given to JAVID Ham for Room 109. Patient transferred via wheelchair, daughter at bedside.
--- NOTE | 2019-04-18 10:30 | NUR ---
REC'D TRANSFER PT FROM ICU AAOX3 VIA WHEELCHAIR, O2 BEING DELIVERED VIA NC AT 2L/MIN. IV IS INTACT AND PATENT BILATERAL. NO S/S OF DISTRESS. SIDE RAILS UPX2, BED IN LOWEST POSITION, AND CALL MEJIA WITHIN REACH.
--- NOTE | 2019-04-18 13:03 | NUR ---
DISCUSSED IN BARRIER ROUNDS, PATIENT TRANSFERRED TO FLOOR ON 2L NC WITH HOME O2 EVAL. PENDING EVAL BY RESPIRATORY THERAPY. MCGEE DISCONTINUED NAD ON A REGULAR DIET. PATIENT NEEDS WALKER PER PHYSICAL THERAPY. ATTENDING CALLED FOR WALKER ORDERS PENDING RETURN CALL. PATIENT PENDING SWALLOW STUDY FOR UPDATED PLAN OF CARE, RECOMMENDATIONS AND DISCHARGE PLANNING.
[2019-04-18] MEDS: ACETAMINOPHEN 325 MG TAB PO PRN ×2 (16:45→23:12)
[2019-04-18] MEDS: LACTOBACILLUS ACIDOPHILUS CAPSULE PO SCH (17:08)
--- NOTE | 2019-04-18 18:11 | NUR ---
PT REPOSITIONED IN BED FOR PAIN RELIEF. NO S/S OF DISTRESS. BED IN LOWEST POSITION, SIDE RAILS UP X2, AND CALL MEJIA WITHIN REACH.
--- NOTE | 2019-04-18 18:26 | NUR ---
HOME O2 ORDERED CANCELLED. CALLED RT FOR SEE WHY IT WAS CANCELLED. RT STATED THAT HER HGB WAS TOO LOW (9.7) TO REC'D HOME O2 EVAL. NOTIFIED DR. BLANKENSHIP AND HE SAID TO PLACE ORDER FOR PATIENT TO REC'V A CBC AND BMP TOMORROW MORNING AND FOR DAY SHIFT NURSE TO CHECK O2 WHILE PT WORKS WITH PATIENT. ORDERS CARRIED OUT AND PASSED ON TO SOLAR DEVELOPMENT ENGINEER.
[2019-04-19] VITALS (8 sets, daily range): BP systolic 119–148; BP diastolic 67–91
[2019-04-19] MEDS: ALBUTEROL/IPRATROPIUM 3 ML NEB NEB SCH ×4 (01:15→20:30)
[2019-04-19] MEDS: AZTREONAM 1 GM/NS 50 ML 50 ML IV SCH ×3 (04:00→20:37)
--- NOTE | 2019-04-19 05:16 | NUR ---
PT RESTING AND NO ACUTE DISTRESS NOTED .FAMILY AT THE BEDSIDE .CALL LIGHT WITH IN REACH .CONTINUE TO MONITOR
--- NOTE | 2019-04-19 05:44 | Diagnostic Imaging Report ---
EXAMINATION: CHEST SINGLE (PORTABLE) INDICATION: Pneumonia COMPARISON: Chest radiograph 04/16/2019 FINDINGS: AP view TUBES and LINES: None. LUNGS: Improved aeration of the right upper lobe. No consolidations. Lungs well-aerated with subtle opacity in the right lower lobe. A 1.2 cm nodular opacity in the right lower lobe. PLEURA: No pleural effusion or pneumothorax. HEART AND MEDIASTINUM: The cardiomediastinal silhouette is unremarkable. BONES AND SOFT TISSUES: No acute osseous lesion. Soft tissues are unremarkable. UPPER ABDOMEN: No free air under the diaphragm. IMPRESSION: Improved aeration of the lungs, with resolution of right upper lobe opacity and faint residual opacity in the right lower lobe which may represent pneumonia or atelectasis. A nodular opacity in the right lower lung is indeterminate. Recommend upright PA and lateral chest radiographs when feasible. Signed by: Endy Tom DO on 04/19/2019 5:41 AM
[2019-04-19 06:24] LABS: BASOPHILS % 0.6 % (0.0-1.0); EOSINOPHILS # (AUTO) 0.2 (0.0-0.4); EOSINOPHILS % 3.1 % (0.0-6.0); HEMATOCRIT 31.7 % (34.2-44.1); HEMOGLOBIN 10.6 g/dL (12.0-16.0); LYMPHOCYTES # (AUTO) 2.4 (1.0-3.2); LYMPHOCYTES % 35.7 % (18.0-39.1); MEAN CORPUSCULAR HEMOGLOBIN 29.3 pg (28-32); MEAN CORPUSCULAR HGB CONC 33.4 g/dL (31-35); MEAN CORPUSCULAR VOLUME 87.6 fL (81-99); MONOCYTES # (AUTO) 0.5 (0.2-0.8); MONOCYTES % 7.3 % (4.4-11.3); NEUTROPHILS # (AUTO) 3.5 (2.1-6.9); NEUTROPHILS % 52.7 % (38.7-80.0); PLATELET COUNT 422 x10e3/uL (140-360); RED BLOOD COUNT 3.62 x10e6/uL (3.6-5.1); RED CELL DISTRIBUTION WIDTH 13.9 % (11.7-14.4)
[2019-04-19] MEDS: LEVOTHYROXINE SODIUM 112 MCG TAB PO SCH (06:24)
[2019-04-19 06:46] LABS: BLOOD UREA NITROGEN < 5 mg/dL (7-26); BUN/CREATININE RATIO 9 (6-25); CALCIUM 8.9 mg/dL (8.4-10.2); CARBON DIOXIDE 27 mmol/L (22-29); CHLORIDE 100 mmol/L (98-107); CREATININE, SERUM 0.54 mg/dL (0.57-1.11); EST GLOMERULAR FILTRATION RATE > 60 ML/MIN (60-); GLUCOSE 104 mg/dL (74-118); SODIUM 136 mmol/L (136-145)
--- NOTE | 2019-04-19 07:35 | NUR ---
BEDSIDE REPORT GIVEN TO THE ONCOMING NURSE
[2019-04-19] MEDS: ENOXAPARIN SOD INJ 40 MG/0.4 ML SYR SC SCH (08:32)
[2019-04-19] MEDS: LACTOBACILLUS ACIDOPHILUS CAPSULE PO SCH ×2 (08:32→16:11)
[2019-04-19] MEDS: ACETAMINOPHEN/CODEINE 300MG - 30MG TAB PO PRN ×3 (08:58→23:30)
[2019-04-19] MEDS: ACETAMINOPHEN 325 MG TAB PO PRN (11:23)
--- NOTE | 2019-04-19 12:30 | NUR ---
CM SPOKE TO PATIENT AT BEDSIDE REGARDING DISCHARGE PLAN. PATIENT WITH ORDER FOR HOME HEALTH. PATIENT CHOSE TO STAY IN NETWORK AND USE [facility]. CHOICE LETTER SIGNED FOR [facility]. CLINICAL SENT TO [facility]. PATIENT TO DISCHARGE HOME WITH HOME HEALTH SERVICES. [facility] LIAISON THALIA NOTIFIED. [facility] (P) [phone] (F) [phone]
[2019-04-19] MEDS ORDERED: POTASSIUM CHLORIDE 20MEQ/100ML 200 ML IV ONE (12:45)
[2019-04-19] MEDS: POTASSIUM CHLORIDE 20MEQ/100ML 100 ML IV SCH ×2 (12:56→15:14)
--- NOTE | 2019-04-19 13:13 | NUR ---
DISCHARGE DISPOSITION PATIENT DISCHARGING HOME WITH HOME HEALTH AND DME- ROLLING WALKER: [facility] (P) [phone] (F) [phone] [facility]. DELIVERED AT BEDSIDE.
--- NOTE | 2019-04-19 14:33 | NUR ---
Nutrition Follow-up Note RD Recommendation(s) for Physician: -Continue diet as ordered Plan of Care: RD following, monitoring for tolerance and adequacy Nutrition reason for involvement: Follow up RD Assessment 04/19: K was repleted. Visited pt in the room. Pt reported eating well with 75-100% recorded meal intake. No GI complains reported. Pt denied any chewing or swallowing issue. Current diet is appropriate and adequate. 04/15: 69 YOF admitted for hyponatremia and AMS, pt s/p seizure upon admit requiring intubation. Pt remains intubated, currently sedated, and on Levophed at 5 mcg/min. Family at bedside denies any wt loss, GI distress, or poor intake recently. Pt appears well nourished. Pt discussed during ICU rounds, rec's discussed with RN Principal Problems/Diagnoses: Hyponatremia, AMS PMH: Hypothyroidism, HTN GI: LBM 04/19 Skin: intact Labs: 04/19: K 3.0 L 04/15: Na 128, K 4.1, BUN 6, Cr 0.55, Gluc 107, Mg 2.6 Meds: KCl, probiotics, synthroid Ht: 66 in Wt: 184 lb BMI: 29.7 IBW: 130 lb Malnutrition Evaluation (04/15/19) The patient does not meet criteria for a specified degree of malnutrition at this time. Will re-evaluate at follow-up as appropriate. Nutrition Prescription (Diet Order): Regular diet Estimated Nutritional Needs: 8219-2500 calories/day (18-20 kcal/kg CBW) 108-167 g protein/day (1.3-2 g pro/kg CBW) Diet Adequacy: Meeting calorie needs, meeting protein needs Diet Education Needs Assessment: Diet education not indicated, pt is on regular diet. Nutrition Care Level: Low Nutrition Diagnosis: No nutrition diagnosis at this time. Goal: Patient will meet 75-100% of estimated needs by follow up Progress: Goal met Interventions: Diet Monitoring/Evaluation: Total energy intake, Total protein intake, Diet, Weight Change Signed: Clary Jesus MS, RD, LD
--- NOTE | 2019-04-19 19:07 | NUR ---
RECEIVED PT IN BED AOX3 .DENIES PAIN .REPARATIONS ARE EVEN AND UNLABORED .FAMILY AT THE BEDSIDE CALL LIGHT WITH IN REACH .CONTINUE TO MONITOR
[2019-04-20] VITALS: BP 123/64
[2019-04-20] MEDS: ALBUTEROL/IPRATROPIUM 3 ML NEB NEB SCH (01:30)
[2019-04-20 04:00] VITALS: BP 133/72
[2019-04-20] MEDS: AZTREONAM 1 GM/NS 50 ML 50 ML IV SCH (04:00)
[2019-04-20] MEDS: LEVOTHYROXINE SODIUM 112 MCG TAB PO SCH (06:00)
--- NOTE | 2019-04-20 06:44 | NUR ---
PT RESTING AND GIVEN PAIN MEDICATION X1 .FAMILY AT THE BEDSIDE .CALL LIGHT WITH IN REACH .CONTINUE TO MONITOR
--- NOTE | 2019-04-20 07:14 | NUR ---
REPORT GIVEN TO THE CHARGE NURSE
--- NOTE | 2019-04-20 07:31 | NUR ---
Rcvd patient in report this am. Patient is asleep in bed at this time. No s/s of distress noted
[2019-04-20 08:10] VITALS: BP 129/74
[2019-04-20 08:12] VITALS: BP 129/74
[2019-04-20 08:26] LABS: ALANINE AMINOTRANSFERASE 33 IU/L (0-55); ALBUMIN 3.4 g/dL (3.5-5.0); ALBUMIN/GLOBULIN RATIO 1.2 (0.8-2.0); ALKALINE PHOSPHATASE 87 IU/L (40-150); ANION GAP 14.6 mmol/L (8-16); BLOOD UREA NITROGEN < 5 mg/dL (7-26); CALCIUM 9.3 mg/dL (8.4-10.2); CARBON DIOXIDE 23 mmol/L (22-29); CHLORIDE 101 mmol/L (98-107); CREATININE, SERUM 0.57 mg/dL (0.57-1.11); EST GLOMERULAR FILTRATION RATE > 60 ML/MIN (60-); GLUCOSE 107 mg/dL (74-118); POTASSIUM 3.6 mmol/L (3.5-5.1); SODIUM 135 mmol/L (136-145)
[2019-04-20 08:27] LABS: BUN/CREATININE RATIO 9 (6-25)
[2019-04-20] MEDS: ACETAMINOPHEN/CODEINE 300MG - 30MG TAB PO PRN (08:37)
[2019-04-20] MEDS: LACTOBACILLUS ACIDOPHILUS CAPSULE PO SCH (08:37)
[2019-04-20] MEDS: ENOXAPARIN SOD INJ 40 MG/0.4 ML SYR SC SCH (08:41)
[2019-04-20 09:32] VITALS: BP 129/74
[2019-04-20] MEDS ORDERED: ONDANSETRON HCL 4 MG ORAL DISINTEGRATING TAB PO PRN (10:30)
[2019-04-20 12:19] VITALS: BP 138/82
[2019-04-20] MEDS ORDERED: ZOFRAN4 MG PO (13:10)
[2019-04-20] MEDS ORDERED: LEVAQUIN500 MG PO (13:41)
--- NOTE | 2019-04-20 17:42 | NUR ---
IMM EXPLAINED TO PT, SIGNED BY PT AND PLACED IN CHART COPY TO PT IN CARE TRANSITIONS FOLDER
--- NOTE | 2019-04-21 06:21 | Discharge Summary ---
PRIMARY CARE DOCTOR: Dr. Magui Cruz. HOSPITAL DOCTOR: Dr. Jag Marsh. PRIMARY DIAGNOSIS: Hyponatremia, symptomatic. SECONDARY DIAGNOSES: Include secondary seizures; gastroenteritis, acute; thyroid abnormality, controlled; hypertension; metabolic encephalopathy, due to electrolyte abnormalities. HOSPITAL COURSE: Ms. Marcy Kiran was admitted to [facility]. She had eaten out and had numerous bouts of emesis and nausea. Her sodium was 122, coming in. The patient without on any implicated medication nor is there a definite chronic hyponatremia, although there was a recent hospitalization after a gastroenteritis in December, where she had sodium 116 after gastroenteritis. The patient had thyroid testing, which showed euthyroid state here. The patient had recitation of the sodium and improvement in her mentation. It was presumed she had seizures due to the hyponatremia. She was treated as pneumonia with antibiotics. As her condition got better, she strengthens and had improved balance, was allowed for outpatient followup at discharge. MEDICATIONS ON DISCHARGE: Please see discharge medicine list for details. DIET: Low-salt diet. ACTIVITY: As tolerated. The patient on the day of discharge probably does not need a walker, although the day prior, it was reasonably recommended. Therefore, she should have consideration to use assist devices when needed. FOLLOWUP: Followup will be with Dr. Magui Cruz, which they have in 5 days time. The patient should have frequent electrolyte checks. Greater than 30 minutes in discharge planning and coordination and long discussion with family. MD NIRAJ Kenyon/IVANA /[id number]
== END 2019-04-20 14:21 | disposition home health service (06) | DRG 640 ==
LOC: MED/SURG3 14:02 → ICU 17:34 → MED/SURG 04-18 10:47
PROVIDERS: ADMIT Internal Medicine; ATTEND Internal Medicine
PROC: 0BH17EZ Insertion of Endotracheal Airway into Trachea, Via Natural or Artificial Opening (ICD-10-PCS; principal; 2019-04-14)
PROC: 5A1945Z Respiratory Ventilation, 24-96 Consecutive Hours (ICD-10-PCS; 2019-04-14)
PROC: 02HV33Z Insertion of Infusion Device into Superior Vena Cava, Percutaneous Approach (ICD-10-PCS; 2019-04-14)
PROC: 3E043XZ Introduction of Vasopressor into Central Vein, Percutaneous Approach (ICD-10-PCS; 2019-04-15)
DX: E87.1 Hypo-osmolality and hyponatremia (principal); J69.0 Pneumonitis due to inhalation of food and vomit; J96.01 Acute respiratory failure with hypoxia; R57.1 Hypovolemic shock; G93.41 Metabolic encephalopathy; R56.9 Unspecified convulsions; T62.91XA Toxic effect of unspecified noxious substance eaten as food, accidental (unintentional), initial encounter; F17.200 Nicotine dependence, unspecified, uncomplicated; I10 Essential (primary) hypertension; Z87.891 Personal history of nicotine dependence; R00.0 Tachycardia, unspecified; E03.9 Hypothyroidism, unspecified; Z78.1 Physical restraint status
CPT/HCPCS: 36415; 36600; 70450; 71045; 71250; 74018; 80048; 80053; 80307; 81001; 82140; 82150; 82533; 82805; 82948; 83690; 83735; 84100; 84132; 84133; 84295; 84300; 84443; 85025; 87040; 87070; 87086; 87205; 94002; 94003; 94640; 97139; J0456; J1100; J1650; J1940; J2060; J2250; J3475; J3480; J7030; J7050; J7070

== ENCOUNTER 2019-07-24 00:15 | Emergency (ER) | payer MEDICARE, OTHER ==
[~2019-07-24] VITALS: Ht 167.6 cm; Wt 77.1 kg
[~2019-07-24 00:15] MED LIST changes: +LEVAQUIN500 MG PO; +ZOFRAN4 MG PO
[2019-07-24] MEDS ORDERED: SODIUM CHLORIDE 0.9% 1000ML 1,000 ML IV STA (00:31)
[2019-07-24] MEDS ORDERED: ONDANSETRON HCL INJ 2MG/ML 2ML 2 MG/ML VIAL ONE (00:45)
[2019-07-24] MEDS ORDERED: ONDANSETRON HCL INJ 2MG/ML 2ML 2 MG/ML VIAL IV ONE (00:45)
[2019-07-24] MEDS ORDERED: FAMOTIDINE 20 MG/2 ML VIAL IV ONE ×2 (00:45→00:46)
[2019-07-24] MEDS ORDERED: SODIUM CHLORIDE 0.9% 1000ML 1,000 ML ONE (00:46)
== END 2019-07-24 01:28 | disposition home or self-care (01) ==
LOC: FSED 00:15
DX: R19.7 Diarrhea, unspecified (principal); R10.84 Generalized abdominal pain; E86.0 Dehydration; I10 Essential (primary) hypertension; E03.9 Hypothyroidism, unspecified
CPT/HCPCS: 80048; 81003; 85025; 99283; J2405; J7030

== ENCOUNTER 2019-08-15 11:46 | Inpatient (IN) | payer MEDICARE ==
[~2019-08-15] VITALS: Ht 167.6 cm; Wt 77.1 kg
[2019-08-15] MEDS ORDERED: IBUPROFEN 400 MG TAB PO STA (12:31)
[2019-08-15] MEDS ORDERED: IBUPROFEN 200 MG TAB ONE (12:44)
--- NOTE | 2019-08-15 12:47 | Diagnostic Imaging Report ---
EXAMINATION: CXR 2 VIEW - HOPD INDICATION: Cough, fever COMPARISON: Chest radiograph of 04/19/2019 FINDINGS: LINES/TUBES:None LUNGS:The lungs are well-inflated. New patchy opacity at the lateral right midlung zone. No left lung consolidation. No pulmonary edema. PLEURA:No pleural effusion or pneumothorax. MEDIASTINUM:The cardiomediastinal silhouette appears unchanged in size and shape. BONES/SOFT TISSUES:No acute osseous injury. ABDOMEN:No free air under the diaphragm. IMPRESSION: New patchy opacity at the lateral right midlung zone, concerning for aspiration and/or pneumonia in the proper clinical setting. RECOMMENDATIONS: Follow-up PA and lateral chest radiograph in 6-8 weeks to assess for resolution. Signed by: Michelle Barreto MD on 08/15/2019 12:44 PM
[2019-08-15] MEDS ORDERED: CEFTRIAXONE SOD 1 GM/NS 50 ML 50 ML IV STA (12:58)
[2019-08-15] MEDS ORDERED: AZITHROMYCIN 500MG/NS 250 ML 250 ML IV ONE (13:00)
[2019-08-15] MEDS ORDERED: AZITHROMYCIN 500MG/SOD CHL 0.9% 250ML BAG IV SCH (13:45)
[2019-08-15] MEDS: ALBUTEROL SULF 0.083% NEB SOLN 3 ML NEB NEB SCH ×3 (14:31→23:45)
[2019-08-15] MEDS ORDERED: CEFTRIAXONE SOD 1 GM/NS 50 ML 50 ML IV ONE (14:35)
[2019-08-15] MEDS ORDERED: ALBUTEROL/IPRATROPIUM 3 ML NEB ONE (14:36)
--- NOTE | 2019-08-15 14:45 | NUR ---
PT TO BE ADMITTED, PT AND FAMILY AWARE OF POC, PT VOICES NO COMPLAINTS AT THIS TIME, VITAL SIGNS STABLE
[2019-08-15] MEDS ORDERED: VANCOMYCIN 1GM/NS 250 ML 250 ML IV STA (15:05)
[2019-08-15] MEDS ORDERED: AZITHROMYCIN 500MG/NS 250 ML 250 ML ONE (15:12)
--- NOTE | 2019-08-15 16:23 | NUR ---
REPORT TO MANUEL HUA ALL QUESTIONS ANSWERED
--- NOTE | 2019-08-15 16:33 | NUR ---
Pt awaiting for room to be clean on the floor to be transported up.
--- NOTE | 2019-08-15 17:30 | NUR ---
PT ARRIVED TO UNIT BY WHEELCHAIR AT 1718. PT IS A&OX4. PT DENIES PAIN OR CHILLS, STATES SHE FEELS "MUCH BETTER". PT ORIENTED TO THE ROOM AND CALL LIGHT. DINNER PROVIDED TO PATIENT AT THIS TIME. PT EATING SITTING AT SIDE OF BED.
[2019-08-15 17:43] VITALS: BP 119/81
[2019-08-15 19:15] VITALS: BP 119/81
--- NOTE | 2019-08-15 19:15 | NUR ---
patient received awake, alert, lying quietly in bed. no c/o pain noted. pm assessment complete. patient instructed to call for assistance when needed.
[2019-08-15 19:44] VITALS: BP 119/81
[2019-08-15 19:49] VITALS: BP 134/62
[2019-08-15 20:03] LABS: CREATINE KINASE 52 IU/L (29-168)
[2019-08-15] MEDS: OSELTAMIVIR PHOSPHATE 75 MG CAP PO SCH (20:23)
[2019-08-15] MEDS: SODIUM CHLORIDE 0.9% 1000ML 1,000 ML IV SCH (20:23)
[2019-08-15] MEDS ORDERED: VANCOMYCIN 1GM/NS 250 ML 250 ML ONE (20:26)
[2019-08-16] VITALS (8 sets, daily range): BP systolic 90–153; BP diastolic 50–86
[2019-08-16] MEDS ORDERED: IBUPROFEN 400 MG TAB PO ONE (02:15)
--- NOTE | 2019-08-16 02:27 | NUR ---
patient medicated with motrin 400 mg po x 1 for elevated temp. portable pulse ox turned off per patients request. ivf continue to infuse without difficulty.
[2019-08-16] MEDS: ALBUTEROL SULF 0.083% NEB SOLN 3 ML NEB NEB SCH ×2 (04:00→07:28)
[2019-08-16 06:12] LABS: BASOPHILS # (AUTO) 0.1 (0.0-0.1); BASOPHILS % 0.4 % (0.0-1.0); EOSINOPHILS % 0.1 % (0.0-6.0); HEMATOCRIT 32.1 % (34.2-44.1); HEMOGLOBIN 10.3 g/dL (12.0-16.0); LYMPHOCYTES # (AUTO) 2.4 (1.0-3.2); MEAN CORPUSCULAR HEMOGLOBIN 28.3 pg (28-32); MEAN CORPUSCULAR HGB CONC 32.1 g/dL (31-35); MEAN CORPUSCULAR VOLUME 88.2 fL (81-99); MONOCYTES # (AUTO) 1.3 (0.2-0.8); MONOCYTES % 7.4 % (4.4-11.3); NEUTROPHILS # (AUTO) 13.2 (2.1-6.9); NEUTROPHILS % 77.3 % (38.7-80.0); PLATELET COUNT 352 x10e3/uL (140-360); RED BLOOD COUNT 3.64 x10e6/uL (3.6-5.1); RED CELL DISTRIBUTION WIDTH 13.4 % (11.7-14.4)
[2019-08-16 06:22] LABS: ALANINE AMINOTRANSFERASE 11 IU/L (0-55); ALBUMIN 2.9 g/dL (3.5-5.0); ALBUMIN/GLOBULIN RATIO 1.2 (0.8-2.0); ALKALINE PHOSPHATASE 75 IU/L (40-150); ANION GAP 9.4 mmol/L (8-16); BLOOD UREA NITROGEN < 5 mg/dL (7-26); CALCIUM 8.2 mg/dL (8.4-10.2); CARBON DIOXIDE 22 mmol/L (22-29); CHLORIDE 101 mmol/L (98-107); CREATININE, SERUM 0.58 mg/dL (0.57-1.11); EST GLOMERULAR FILTRATION RATE > 60 ML/MIN (60-); GLUCOSE 138 mg/dL (74-118); SODIUM 130 mmol/L (136-145)
[2019-08-16 06:27] LABS: BUN/CREATININE RATIO 9 (6-25)
[2019-08-16 06:29] LABS: POTASSIUM 2.4 mmol/L (3.5-5.1)
--- NOTE | 2019-08-16 06:45 | NUR ---
k+ 2.4 Dr. Deleon notified and new orders noted.
[2019-08-16 06:47] LABS: CREATINE KINASE MB 0.9 ng/mL (0-5.0)
[2019-08-16] MEDS ORDERED: POTASSIUM CHLORIDE 20 MEQ TAB CR PO ONE ×2 (07:30→09:00)
--- NOTE | 2019-08-16 07:35 | NUR ---
PATIENT SITTING UP IN BED RECEIVING NEB TREATMENT, NO DISTRESS NOTED. IV FLUID INFUSING ORDERED. BED IN LOWER POSITION, CALL LIGHT AT REACH.
[2019-08-16] MEDS: SODIUM CHLORIDE 0.9% 1000ML 1,000 ML IV SCH (07:37)
[2019-08-16] MEDS: OSELTAMIVIR PHOSPHATE 75 MG CAP PO SCH ×2 (09:43→17:38)
[2019-08-16] MEDS: AZITHROMYCIN 500MG/NS 250 ML 250 ML IV SCH (09:43)
[2019-08-16] MEDS ORDERED: ALBUTEROL/IPRATROPIUM 3 ML NEB NEB PRN (09:45)
[2019-08-16] MEDS ORDERED: IBUPROFEN 200 MG TAB PO PRN (10:15)
[2019-08-16] MEDS: KCL 40MEQ/0.9% SOD CHL 1,000 ML IV SCH (11:30)
[2019-08-16] MEDS: CEFTRIAXONE SOD 2 GM/NS 100 ML 100 ML IV SCH (11:30)
--- NOTE | 2019-08-16 11:34 | NUR ---
PATIENT C/O MILD GENERALIZED PAIN. MEDICATED ORDERED. IN BED RESTING WITH CALL LIGHT AT REACH.
[2019-08-16] MEDS: ALBUTEROL/IPRATROPIUM 3 ML NEB NEB SCH ×2 (13:38→19:58)
--- NOTE | 2019-08-16 15:53 | NUR ---
PATIENT OFF UNIT TO RADIOLOGY.
--- NOTE | 2019-08-16 16:15 | NUR ---
PATIENT BACK TO UNIT FROM RADIOLOGY.
[2019-08-16] MEDS ORDERED: POTASSIUM CHLORIDE 20 MEQ TAB CR PO PRN (16:45)
--- NOTE | 2019-08-16 17:29 | Diagnostic Imaging Report ---
EXAM: CT Chest WITHOUT intravenous contrast 08/16/2019 9:35 AM INDICATION: Pneumonia, flulike symptoms COMPARISON: Chest radiograph 04/19/2019, chest CT 04/14/2019 TECHNIQUE: Chest was scanned utilizing a multidetector helical scanner from the lung apex through the level of the adrenal glands without administration of IV contrast. Coronal and sagittal reformations were obtained. Routine protocol was performed. IV CONTRAST: None RADIATION DOSE: Total DLP: 513.8 mGy*cm. Dose modulation, iterative reconstruction, and/or weight based adjustment of the mA/kV was utilized to reduce the radiation dose to as low as reasonably achievable. COMPLICATIONS: None FINDINGS: LINES/ TUBES: None. LUNGS AND AIRWAYS: The central airways are patent. Mild bilateral centrilobular emphysema. Multifocal groundglass and consolidative opacities at the posterior right upper lobe and lateral right middle lobe as well as the superior segment of right lower lobe. These are new compared to the prior chest CT of 04/14/2019. No new suspicious pulmonary nodules. PLEURA: The pleural spaces are clear. HEART AND MEDIASTINUM: Atrophic thyroid gland. No supraclavicular lymphadenopathy. Prominent pretracheal lymph node does not meet size arterial for lymphadenopathy. No hilar lymphadenopathy. The heart is not enlarged. No pericardial effusion. Scattered atherosclerotic calcifications of the coronary arteries, aorta, and proximal great vessels. The main pulmonary artery is not enlarged. UPPER ABDOMEN: Limited images of the upper abdomen demonstrate cholelithiasis without CT evidence of cholecystitis. No focal abnormality of the partially visualized liver, spleen, pancreas, adrenals, or upper most kidneys. BONES: No acute osseous injury. No suspicious lytic or blastic lesions. SOFT TISSUES: Unremarkable. IMPRESSION: New multifocal groundglass and consolidative opacities involving the posterior right upper lobe, lateral right middle lobe, and superior segment of right lower lobe. Findings are compatible with multifocal aspiration or pneumonia in the acute clinical setting. Scattered atherosclerotic arterial calcifications including of the coronary arteries. Cholelithiasis without CT evidence of cholecystitis. RECOMMENDATIONS: Follow-up PA and lateral chest radiograph to assess for resolution in 6-8 weeks. Signed by: Michelle Barreto MD on 08/16/2019 5:26 PM
[2019-08-16] MEDS: METOPROLOL SUCCINATE 25 MG TAB XL PO SCH (17:37)
[2019-08-16] MEDS: GABAPENTIN 300 MG CAP PO SCH (17:38)
[2019-08-16 17:47] LABS: FREE THYROXINE INDEX 2.7474 (1.4-3.8); THYROID STIMULATING HORMONE 0.081 uIU/mL (0.350-4.940)
[2019-08-16] MEDS: ACETAMINOPHEN 325 MG TAB PO PRN (17:50)
--- NOTE | 2019-08-16 19:30 | NUR ---
patient received awake, alert, lying quietly in bed. vss. no c/o pain noted. patient states, " I'm feeling a little better. " ivf continue to infuse without difficulty. pm assessment complete. patient instructed to call for assistance when needed.
[2019-08-16] MEDS: HEPARIN SOD (PORCINE) 5,000 UNIT/ML VIAL SC SCH (20:29)
--- NOTE | 2019-08-16 23:17 | Consultation ---
DATE OF CONSULTATION: Pulmonary Consultation Patient of Dr. Deleon. HISTORY OF PRESENT ILLNESS: [place] 69-year-old woman, well known to the Pulmonary Service, admitted with fever, chills, sore throat, muscle aches. Family member . History of hypertension, hypothyroidism, allergic to eggs and iodine. She has had a cough, which is nonproductive. Diarrhea recently earache, nasal congestion. SOCIAL HISTORY: Ex-smoker, quit many years ago. Born in [place]. Worked as a housewife PAST SURGICAL HISTORY: No surgical history. She has had episodes of Said to have influenza B at the outpatient ER. PHYSICAL EXAMINATION: VITAL SIGNS: Temperature 100.6, 102 at home, pulse 104, respirations 18, blood pressure . HEAD: Normocephalic and atraumatic. EYES: Extraocular movements intact. LUNGS: Diminished breath sounds. HEART: Regular rhythm. ABDOMEN: Nontender. EXTREMITIES: Nonedematous. ASSESSMENT AND PLAN: The patient has right upper lobe infiltrate, influenza, currently on Tamiflu. Continue atenolol, gabapentin, Levoxyl symptomatic care, empiric antibiotics. We will monitor care . Monitor electrolytes. Thank you for this kind referral. MD PRISCILLA Malik/IVANA /[id number]
[2019-08-17] VITALS (8 sets, daily range): BP systolic 109–128; BP diastolic 56–75
[2019-08-17] MEDS: GUAIFENESIN/CODEINE 10 ML CUP PO PRN ×4 (00:30→20:47)
[2019-08-17] MEDS: IBUPROFEN 200 MG TAB PO PRN ×3 (00:30→13:35)
--- NOTE | 2019-08-17 00:30 | NUR ---
patient medicated for headache and cough per orders.
[2019-08-17] MEDS: ALBUTEROL/IPRATROPIUM 3 ML NEB NEB SCH ×4 (00:40→19:40)
[2019-08-17] MEDS: KCL 40MEQ/0.9% SOD CHL 1,000 ML IV SCH ×3 (01:57→17:36)
[2019-08-17] MEDS: LEVOTHYROXINE SODIUM 112 MCG TAB PO SCH (05:02)
--- NOTE | 2019-08-17 05:02 | NUR ---
patient medicated for c/o cough per orders at this time.
[2019-08-17 05:48] LABS: BASOPHILS # (AUTO) 0.1 (0.0-0.1); BASOPHILS % 0.4 % (0.0-1.0); EOSINOPHILS # (AUTO) 0.2 (0.0-0.4); EOSINOPHILS % 1.2 % (0.0-6.0); HEMATOCRIT 30.7 % (34.2-44.1); HEMOGLOBIN 10.2 g/dL (12.0-16.0); LYMPHOCYTES # (AUTO) 2.6 (1.0-3.2); LYMPHOCYTES % 18.8 % (18.0-39.1); MEAN CORPUSCULAR HEMOGLOBIN 28.8 pg (28-32); MEAN CORPUSCULAR HGB CONC 33.2 g/dL (31-35); MEAN CORPUSCULAR VOLUME 86.7 fL (81-99); MONOCYTES # (AUTO) 0.9 (0.2-0.8); MONOCYTES % 6.4 % (4.4-11.3); NEUTROPHILS # (AUTO) 9.9 (2.1-6.9); NEUTROPHILS % 72.2 % (38.7-80.0); PLATELET COUNT 301 x10e3/uL (140-360); RED BLOOD COUNT 3.54 x10e6/uL (3.6-5.1); RED CELL DISTRIBUTION WIDTH 13.4 % (11.7-14.4)
[2019-08-17 06:06] LABS: ANION GAP 12.7 mmol/L (8-16); BLOOD UREA NITROGEN < 5 mg/dL (7-26); CALCIUM 8.8 mg/dL (8.4-10.2); CARBON DIOXIDE 20 mmol/L (22-29); CHLORIDE 108 mmol/L (98-107); CREATININE, SERUM 0.55 mg/dL (0.57-1.11); EST GLOMERULAR FILTRATION RATE > 60 ML/MIN (60-); GLUCOSE 123 mg/dL (74-118); MAGNESIUM 1.8 MG/DL (1.3-2.1); PHOSPHORUS 2.5 MG/DL (2.3-4.7); POTASSIUM 3.7 mmol/L (3.5-5.1); SODIUM 137 mmol/L (136-145)
[2019-08-17 06:22] LABS: BUN/CREATININE RATIO 9 (6-25)
[2019-08-17] MEDS: OSELTAMIVIR PHOSPHATE 75 MG CAP PO SCH ×2 (08:43→17:00)
[2019-08-17] MEDS: GABAPENTIN 300 MG CAP PO SCH ×2 (08:43→17:00)
[2019-08-17] MEDS: METOPROLOL SUCCINATE 25 MG TAB XL PO SCH (08:43)
[2019-08-17] MEDS: HEPARIN SOD (PORCINE) 5,000 UNIT/ML VIAL SC SCH ×2 (08:46→20:31)
[2019-08-17] MEDS: AZITHROMYCIN 500MG/NS 250 ML 250 ML IV SCH (09:00)
[2019-08-17] MEDS: CEFTRIAXONE SOD 2 GM/NS 100 ML 100 ML IV SCH (10:30)
--- NOTE | 2019-08-17 15:30 | NUR ---
PT RESTING ISOLATION PRECAUTIONS MAINTAINED.
--- NOTE | 2019-08-17 19:10 | NUR ---
Received bedside report from day nurse. Patient resting in bed, in stable condition, no s/s of distress or c/o pain at this time. All safety measures in place. Family at bedside. Will continue to monitor.
[2019-08-17] MEDS: ACETAMINOPHEN 325 MG TAB PO PRN (20:47)
--- NOTE | 2019-08-17 23:04 | NUR ---
Report given to Chi RN. Patient resting in bed, no s/s of distress at this time. All safety measures in place.
[2019-08-18] VITALS (9 sets, daily range): BP systolic 110–165; BP diastolic 64–89
[2019-08-18] MEDS: ALBUTEROL/IPRATROPIUM 3 ML NEB NEB SCH ×4 (01:00→19:45)
[2019-08-18] MEDS: GUAIFENESIN/CODEINE 10 ML CUP PO PRN ×3 (01:22→21:13)
[2019-08-18] MEDS: KCL 40MEQ/0.9% SOD CHL 1,000 ML IV SCH (03:30)
[2019-08-18] MEDS: IBUPROFEN 200 MG TAB PO PRN ×2 (03:31→13:02)
[2019-08-18] MEDS: LEVOTHYROXINE SODIUM 112 MCG TAB PO SCH (06:04)
--- NOTE | 2019-08-18 06:38 | NUR ---
report given to day nurse. patient is resting comfortably in bed. bed is in lowest position and call wang is within reach.
--- NOTE | 2019-08-18 07:00 | NUR ---
Received patient lying in bed with eyes closed. Respiration even and unlabored without SOB. Call light in reach.
[2019-08-18] MEDS: AZITHROMYCIN 500MG/NS 250 ML 250 ML IV SCH (09:00)
[2019-08-18] MEDS: GABAPENTIN 300 MG CAP PO SCH ×2 (09:01→18:06)
[2019-08-18] MEDS: METOPROLOL SUCCINATE 25 MG TAB XL PO SCH (09:02)
[2019-08-18] MEDS: OSELTAMIVIR PHOSPHATE 75 MG CAP PO SCH ×2 (09:02→18:06)
[2019-08-18] MEDS: BENZONATATE 100 MG CAP PO SCH ×3 (09:43→21:13)
[2019-08-18] MEDS: ACETAMINOPHEN 325 MG TAB PO PRN ×2 (09:44→18:06)
[2019-08-18] MEDS: HEPARIN SOD (PORCINE) 5,000 UNIT/ML VIAL SC SCH ×2 (09:47→21:13)
--- NOTE | 2019-08-18 19:12 | NUR ---
Report given to night nurse. Respiration even and unlabored without SOB. Call light in reach.
--- NOTE | 2019-08-18 19:23 | NUR ---
Received bedside report from day nurse. Patient resting in bed, in stable condition, no s/s of distress at this time. All safety measures in place. Will continue to monitor.
[2019-08-18] MEDS ORDERED: SODIUM CHLORIDE 0.9% 250ML 250 ML ONE (20:58)
[2019-08-18] MEDS: CEFTRIAXONE SOD 2 GM/NS 100 ML 100 ML IV SCH (21:13)
[2019-08-19] VITALS (8 sets, daily range): BP systolic 109–150; BP diastolic 58–91
[2019-08-19] MEDS: IBUPROFEN 200 MG TAB PO PRN ×3 (00:07→15:10)
[2019-08-19] MEDS: ALBUTEROL/IPRATROPIUM 3 ML NEB NEB SCH ×4 (01:00→20:54)
[2019-08-19] MEDS: IPRATROPIUM BROMIDE 0.06% 42 MCG NASPR NS SCH ×2 (01:12→20:14)
[2019-08-19] MEDS: GUAIFENESIN/CODEINE 10 ML CUP PO PRN ×3 (01:13→20:14)
[2019-08-19] MEDS: LEVOTHYROXINE SODIUM 112 MCG TAB PO SCH (05:33)
--- NOTE | 2019-08-19 07:13 | NUR ---
Gave bedside report to day nurse. Patient resting in bed, no s/s of distress or c/o pain at this time. All safety measures in place.
--- NOTE | 2019-08-19 07:30 | NUR ---
Patient received this morning, alert and responsive, no resp distress, call light within reach, will monitor
[2019-08-19] MEDS: AZITHROMYCIN 500MG/NS 250 ML 250 ML IV SCH (09:00)
[2019-08-19 09:03] LABS: BASOPHILS # (AUTO) 0.1 (0.0-0.1); EOSINOPHILS # (AUTO) 0.5 (0.0-0.4); EOSINOPHILS % 6.5 % (0.0-6.0); HEMOGLOBIN 11.7 g/dL (12.0-16.0); LYMPHOCYTES # (AUTO) 3.1 (1.0-3.2); LYMPHOCYTES % 38.4 % (18.0-39.1); MEAN CORPUSCULAR HGB CONC 33.4 g/dL (31-35); MEAN CORPUSCULAR VOLUME 86.6 fL (81-99); MONOCYTES # (AUTO) 0.4 (0.2-0.8); NEUTROPHILS % 48.6 % (38.7-80.0); PLATELET COUNT 414 x10e3/uL (140-360); RED BLOOD COUNT 4.04 x10e6/uL (3.6-5.1); RED CELL DISTRIBUTION WIDTH 13.3 % (11.7-14.4)
[2019-08-19] MEDS: OSELTAMIVIR PHOSPHATE 75 MG CAP PO SCH ×2 (09:05→17:29)
[2019-08-19] MEDS: BENZONATATE 100 MG CAP PO SCH ×3 (09:05→20:14)
[2019-08-19] MEDS: GABAPENTIN 300 MG CAP PO SCH ×2 (09:05→17:29)
[2019-08-19] MEDS: CEFTRIAXONE SOD 2 GM/NS 100 ML 100 ML IV SCH ×2 (09:05→20:14)
[2019-08-19] MEDS: METOPROLOL SUCCINATE 25 MG TAB XL PO SCH (09:06)
[2019-08-19] MEDS: HEPARIN SOD (PORCINE) 5,000 UNIT/ML VIAL SC SCH ×2 (09:07→20:14)
[2019-08-19 09:14] LABS: ANION GAP 16.5 mmol/L (8-16); BLOOD UREA NITROGEN < 5 mg/dL (7-26); CALCIUM 9.4 mg/dL (8.4-10.2); CARBON DIOXIDE 24 mmol/L (22-29); CHLORIDE 98 mmol/L (98-107); EST GLOMERULAR FILTRATION RATE > 60 ML/MIN (60-); GLUCOSE 147 mg/dL (74-118); POTASSIUM 3.5 mmol/L (3.5-5.1); SODIUM 135 mmol/L (136-145)
[2019-08-19 09:17] LABS: BUN/CREATININE RATIO 8 (6-25)
--- NOTE | 2019-08-19 19:03 | NUR ---
Received bedside report from day nurse. Patient out of bed and in bathroom, no s/s of distress or c/o pain at this time. All safety measures in place. Will continue to monitor.
--- NOTE | 2019-08-19 19:04 | NUR ---
Patient stable, no distress, cough, medicated, headaches better as medicated, tolerated all abx, LS with some wheezing, no resp distress, rounds completed
[2019-08-19] MEDS ORDERED: SODIUM CHLORIDE 0.9% 250ML 250 ML ONE (20:07)
[2019-08-20] VITALS (8 sets, daily range): BP systolic 115–149; BP diastolic 63–90
[2019-08-20] MEDS: ALBUTEROL/IPRATROPIUM 3 ML NEB NEB SCH ×4 (01:00→19:37)
[2019-08-20] MEDS: IBUPROFEN 200 MG TAB PO PRN ×2 (03:21→20:34)
[2019-08-20] MEDS: GUAIFENESIN/CODEINE 10 ML CUP PO PRN ×3 (03:21→22:47)
[2019-08-20] MEDS: LEVOTHYROXINE SODIUM 112 MCG TAB PO SCH (05:37)
--- NOTE | 2019-08-20 07:00 | NUR ---
Bedside report given to oncoming nurse. Patient resting in bed, no s/s of distress or c/o pain at this time. All safety measures in place.
--- NOTE | 2019-08-20 07:49 | NUR ---
Received patient today, a/ox3, no resp distress, call light within reach, will monitor.
[2019-08-20] MEDS: BENZONATATE 100 MG CAP PO SCH ×3 (08:18→20:33)
[2019-08-20] MEDS: OSELTAMIVIR PHOSPHATE 75 MG CAP PO SCH (08:18)
[2019-08-20] MEDS: GABAPENTIN 300 MG CAP PO SCH ×2 (08:18→17:20)
[2019-08-20] MEDS: METOPROLOL SUCCINATE 25 MG TAB XL PO SCH (09:08)
[2019-08-20] MEDS: CEFTRIAXONE SOD 2 GM/NS 100 ML 100 ML IV SCH ×2 (09:08→20:33)
[2019-08-20] MEDS: HEPARIN SOD (PORCINE) 5,000 UNIT/ML VIAL SC SCH ×2 (09:38→20:34)
[2019-08-20] MEDS: AZITHROMYCIN 500MG/NS 250 ML 250 ML IV SCH (09:38)
--- NOTE | 2019-08-20 19:22 | NUR ---
PT IS RESTING IN BED. RESPIRATION IS EVEN AND UNLABORED, NO DISTRESS NOTED. WILL CONTINUE TO MONITOR.
--- NOTE | 2019-08-20 23:16 | NUR ---
SPOKE TO DR DE JESUS IN REGARD TO PT POTASSIUM OF 1.5 AND CALCIUM OF 6.0. PER [address] DE JESUS REDO ORDER GIVEN IN ER. PT RECEIVED A TOTAL OF 100MEQ OF POTASSIUM AND 4.65MEQ OF CALCIUM. WILL CONTINUE TO MONITOR. Addendum: 08/21/19 at 0209 by Jennifer Simpson RN NOTE ON WRONG PT
[2019-08-21] VITALS (9 sets, daily range): BP systolic 108–183; BP diastolic 57–107
[2019-08-21] MEDS: ALBUTEROL/IPRATROPIUM 3 ML NEB NEB SCH ×4 (00:40→20:00)
[2019-08-21] MEDS: GUAIFENESIN/CODEINE 10 ML CUP PO PRN ×4 (02:35→20:35)
[2019-08-21] MEDS: LEVOTHYROXINE SODIUM 112 MCG TAB PO SCH (06:14)
[2019-08-21] MEDS: IBUPROFEN 200 MG TAB PO PRN ×2 (06:15→16:10)
[2019-08-21] MEDS: AZITHROMYCIN 500MG/NS 250 ML 250 ML IV SCH (09:00)
[2019-08-21] MEDS: GABAPENTIN 300 MG CAP PO SCH ×2 (09:05→16:22)
[2019-08-21] MEDS: BENZONATATE 100 MG CAP PO SCH ×3 (09:05→20:35)
[2019-08-21] MEDS: CEFTRIAXONE SOD 2 GM/NS 100 ML 100 ML IV SCH ×2 (09:05→20:35)
[2019-08-21] MEDS: METOPROLOL SUCCINATE 25 MG TAB XL PO SCH (09:06)
[2019-08-21] MEDS: HEPARIN SOD (PORCINE) 5,000 UNIT/ML VIAL SC SCH ×2 (09:34→21:27)
[2019-08-21] MEDS ORDERED: SODIUM CHLORIDE 0.9% 250ML 250 ML ONE (09:42)
--- NOTE | 2019-08-21 19:07 | NUR ---
PT IS RESTING IN BED. RESPIRATION IS EVEN AND UNLABORED, NO DISTRESS NOTED. BED IN THE LOWEST POSITION, LOCKED, AND CALL LIGHT WITHIN REACH. WILL CONTINUE TO MONITOR.
[2019-08-22] MEDS: ALBUTEROL/IPRATROPIUM 3 ML NEB NEB SCH ×2 (01:00→07:00)
[2019-08-22 01:04] VITALS: BP 121/78
[2019-08-22 06:02] VITALS: BP 120/70
[2019-08-22] MEDS: LEVOTHYROXINE SODIUM 112 MCG TAB PO SCH (06:08)
[2019-08-22 06:20] LABS: BASOPHILS # (AUTO) 0.1 (0.0-0.1); BASOPHILS % 1.6 % (0.0-1.0); EOSINOPHILS # (AUTO) 0.5 (0.0-0.4); HEMOGLOBIN 11.7 g/dL (12.0-16.0); LYMPHOCYTES # (AUTO) 3.3 (1.0-3.2); LYMPHOCYTES % 40.8 % (18.0-39.1); MEAN CORPUSCULAR HEMOGLOBIN 28.4 pg (28-32); MEAN CORPUSCULAR HGB CONC 31.6 g/dL (31-35); MEAN CORPUSCULAR VOLUME 89.8 fL (81-99); MONOCYTES # (AUTO) 0.7 (0.2-0.8); MONOCYTES % 8.4 % (4.4-11.3); NEUTROPHILS # (AUTO) 3.4 (2.1-6.9); NEUTROPHILS % 42.1 % (38.7-80.0); PLATELET COUNT 444 x10e3/uL (140-360); RED BLOOD COUNT 4.12 x10e6/uL (3.6-5.1); RED CELL DISTRIBUTION WIDTH 13.6 % (11.7-14.4)
[2019-08-22 06:41] LABS: ANION GAP 12.9 mmol/L (8-16); BLOOD UREA NITROGEN 8 mg/dL (7-26); BUN/CREATININE RATIO 13 (6-25); CALCIUM 9.4 mg/dL (8.4-10.2); CARBON DIOXIDE 25 mmol/L (22-29); CHLORIDE 103 mmol/L (98-107); CREATININE, SERUM 0.63 mg/dL (0.57-1.11); EST GLOMERULAR FILTRATION RATE > 60 ML/MIN (60-); GLUCOSE 102 mg/dL (74-118); POTASSIUM 3.9 mmol/L (3.5-5.1); SODIUM 137 mmol/L (136-145)
[2019-08-22 07:25] VITALS: BP 143/88
[2019-08-22 07:43] VITALS: BP 143/88
[2019-08-22 08:03] LABS: EOSINOPHILS % (MANUAL) 4 % (0-7); LYMPHOCYTES % (MANUAL) 38 % (19-48); MONOCYTES % (MANUAL) 6 % (3.4-9.0); NEUTROPHILS % (MANUAL) 47 % (40-74)
[2019-08-22 08:04] LABS: ANISOCYTOSIS SLIGHT; OVALOCYTES FEW; POIKILOCYTOSIS SLIGHT
[2019-08-22 08:05] LABS: PLATELET ESTIMATE SLIGHTLY INCREASED; PLATELET MORPHOLOGY COMMENT NORMAL; RBC MORPHOLOGY COMMENT ABNORMAL
[2019-08-22] MEDS: GABAPENTIN 300 MG CAP PO SCH (08:26)
[2019-08-22] MEDS: BENZONATATE 100 MG CAP PO SCH (08:26)
[2019-08-22] MEDS: METOPROLOL SUCCINATE 25 MG TAB XL PO SCH (08:27)
[2019-08-22] MEDS ORDERED: DOXYCYCLINE HYCLATE TABLET 100 MG TAB PO ONE (10:15)
[2019-08-22] MEDS ORDERED: ATENOLOL 50 MG TAB PO ONE (10:15)
[2019-08-22 11:39] VITALS: BP 117/67
--- NOTE | 2019-08-22 13:15 | NUR ---
pt discharged home ,iv dcd without redness or swelling,prescriptions and instructions given copy on chart.transported to auto via w/c
[2019-08-23] MEDS ORDERED: ATENOLOL 50 MG TAB PO SCH (09:00)
== END 2019-08-22 13:10 | disposition home or self-care (01) | DRG 195 ==
LOC: FSED 11:46 → ERHOLD 13:37 → MED/SURG3 17:20 → OBSVTOIN 08-16 09:35
PROVIDERS: ADMIT Internal Medicine; ATTEND Internal Medicine
DX: J10.00 Influenza due to other identified influenza virus with unspecified type of pneumonia (principal); E03.9 Hypothyroidism, unspecified; J18.1 Lobar pneumonia, unspecified organism; I10 Essential (primary) hypertension; Z87.891 Personal history of nicotine dependence; Z91.012 Allergy to eggs; J40 Bronchitis, not specified as acute or chronic
CPT/HCPCS: 36415; 71046; 71250; 80048; 80053; 81003; 82550; 82553; 82607; 83518; 83605; 83735; 84100; 84436; 84443; 84479; 84484; 85025; 87040; 87400; 94640; 99284; G0378; J0456; J0696; J1644; J3370; J7030; J7050

== ENCOUNTER 2019-08-24 16:33 | Inpatient (IN) | payer MEDICARE ==
[2019-08-24] VITALS (7 sets, daily range): BP systolic 127–146; BP diastolic 83–97
[~2019-08-24] VITALS: Ht 167.6 cm; Wt 92.5 kg
--- NOTE | 2019-08-24 17:16 | NUR ---
LABS TO [facility] VIA TELEMETRY REGISTERED NURSE HERE
--- NOTE | 2019-08-24 17:36 | Diagnostic Imaging Report ---
EXAMINATION: CXR 1 VIEW - HOPD COMPARISON: Chest x-ray 08/15/2019 INDICATION: Seizure DISCUSSION: Frontal view of the chest obtained at 1711 hours. HEART AND MEDIASTINUM: Stable mild cardiomegaly and aortic ectasia LINES: None. LUNGS: Diffuse hyperinflation consistent with COPD. Prominence of the pulmonary veins is stable. Two rounded foci of consolidation in the lateral right midlung field are stable. No new findings in the left lung. PLEURA: No pleural effusion or pneumothorax. BONES AND SOFT TISSUES: No focal osseous lesion. The soft tissues are normal. IMPRESSION: Stable pulmonary hyperinflation, cardiomegaly, and pulmonary venous hypertension. Two airspace opacities in the right lung are stable. Continued follow-up is recommended to document resolution. Signed by: Dr. Carlita Rowell MD on 08/24/2019 5:32 PM
[2019-08-24 17:38] LABS: BASOPHILS # (AUTO) 0.1 (0.0-0.1); BASOPHILS % 0.7 % (0.0-1.0); EOSINOPHILS # (AUTO) 0.1 (0.0-0.4); EOSINOPHILS % 0.4 % (0.0-6.0); HEMATOCRIT 33.5 % (34.2-44.1); HEMOGLOBIN 11.5 g/dL (12.0-16.0); LYMPHOCYTES # (AUTO) 2.4 (1.0-3.2); LYMPHOCYTES % 20.8 % (18.0-39.1); MEAN CORPUSCULAR HEMOGLOBIN 28.5 pg (28-32); MEAN CORPUSCULAR HGB CONC 34.3 g/dL (31-35); MEAN CORPUSCULAR VOLUME 83.1 fL (81-99); MONOCYTES # (AUTO) 0.5 (0.2-0.8); MONOCYTES % 4.6 % (4.4-11.3); NEUTROPHILS # (AUTO) 8.3 (2.1-6.9); NEUTROPHILS % 71.5 % (38.7-80.0); PLATELET COUNT 512 x10e3/uL (140-360); RED BLOOD COUNT 4.03 x10e6/uL (3.6-5.1); RED CELL DISTRIBUTION WIDTH 13.2 % (11.7-14.4)
[2019-08-24 17:43] LABS: BILIRUBIN,URINE NEGATIVE (NEGATIVE); CLARITY,URINE CLEAR (CLEAR); COLOR,URINE YELLOW (YELLOW); KETONES,URINE NEGATIVE (NEGATIVE); LEUKOCYTE ESTERASE ,URINE NEGATIVE (NEGATIVE); NITRITE,URINE NEGATIVE (NEGATIVE); PROTEIN,URINE DIPSTICK NEGATIVE (NEGATIVE); URINE UROBILINOGEN 0.2 mg/dL (0.2 - 1)
--- NOTE | 2019-08-24 17:45 | NUR ---
SZ LIKE ACTIVITY. PT DAZING OFF, STERNAL RUB, AWAKEN, NRB 15 LPM SATS UP TO 100% AFTER DROPPING TO 84% RA AFTER SEIZING. MD AWARE AND MEDS ORDERED,
[2019-08-24 17:58] LABS: INR 1.04; PROTHROMBIN TIME 14.1 seconds (11.9-14.5)
[2019-08-24 18:03] LABS: ALANINE AMINOTRANSFERASE 41 IU/L (0-55); ALBUMIN 3.5 g/dL (3.5-5.0); ALBUMIN/GLOBULIN RATIO 1.2 (0.8-2.0); ALKALINE PHOSPHATASE 107 IU/L (40-150); ANION GAP 12.8 mmol/L (8-16); BLOOD UREA NITROGEN 9 mg/dL (7-26); BUN/CREATININE RATIO 16 (6-25); CALCIUM 8.9 mg/dL (8.4-10.2); CARBON DIOXIDE 20 mmol/L (22-29); CHLORIDE 85 mmol/L (98-107); CREATININE, SERUM 0.58 mg/dL (0.57-1.11); EST GLOMERULAR FILTRATION RATE > 60 ML/MIN (60-); GLUCOSE 133 mg/dL (74-118); MAGNESIUM 1.7 MG/DL (1.3-2.1); PHOSPHORUS 3.1 MG/DL (2.3-4.7); POTASSIUM 3.8 mmol/L (3.5-5.1)
[2019-08-24 18:05] LABS: BACTERIA,URINE FEW /HPF; RBC,URINE 0-5 /HPF (0-5); WBC,URINE (MAN) 0-5 /HPF (0-5)
[2019-08-24 18:07] LABS: SODIUM 114 mmol/L (136-145)
--- NOTE | 2019-08-24 18:09 | Diagnostic Imaging Report ---
CT BRAIN [facility] HISTORY: Seizures, altered mental status COMPARISON: Head CT 04/14/2019 Technique: Noncontrast axial scans were obtained from skull base to the vertex. Coronal and sagittal reconstructions obtained from the axial data. One or more of the following dose reduction techniques were used: Automated exposure control, adjustment of the mA and/or kV according to patient size, and/or utilization of iterative reconstruction technique. DISCUSSION: Scalp/Skull: Unremarkable. Brain sulci: Mildly prominent. Ventricles: Compensatory dilatation. Extra-axial spaces: No masses or fluid collections. Carotid siphon calcifications are present. Parenchyma: Mild bilateral deep white matter hypodensity is likely chronic microvascular ischemic change. Otherwise, no masses, hemorrhage, or large vascular territory acute infarct. Dural sinuses: No abnormal densities. Sellar/Suprasellar region: Intact. Skull base: Intact. Incidental findings: The adenoid tonsils are prominent with bilateral mastoid/middle ear effusions. IMPRESSION: 1. No acute intracranial abnormalities. 2. Mild supratentorial chronic microvascular ischemic change. Mild generalized cerebral volume loss. 3. Nonspecific mildly prominent adenoid tonsils with bilateral mastoid/middle ear effusions. Signed by: Dr. Yoan Francis M.D. on 08/24/2019 6:06 PM
[2019-08-24] MEDS ORDERED: PHENYTOIN SODIUM INJ 50 MG/ML 2 ML VIAL ONE (18:19)
[2019-08-24] MEDS ORDERED: SODIUM CHLORIDE 0.9% 500ML 500 ML ONE (18:20)
[2019-08-24] MEDS ORDERED: SODIUM CHLORIDE 0.9% 500ML 250 ML IV STA (18:21)
[2019-08-24] MEDS ORDERED: PHENYTOIN SODIUM INJ 50 MG/ML 2 ML VIAL IV ONE ×2 (18:21→18:45)
[2019-08-24 18:23] LABS: THYROID STIMULATING HORMONE 0.286 uIU/mL (0.350-4.940)
[2019-08-24] MEDS ORDERED: PHENYTOIN SODIUM INJ 50 MG/ML 2 ML VIAL IV STA (18:27)
[2019-08-24] MEDS ORDERED: ACETAMINOPHEN 325 MG TAB PO PRN (19:30)
[2019-08-24] MEDS ORDERED: ONDANSETRON HCL INJ 2MG/ML 2ML 2 MG/ML VIAL IV PRN (19:30)
[2019-08-24] MEDS ORDERED: SODIUM CHLORIDE 3% 500 ML IV SCH (19:30)
[2019-08-24] MEDS ORDERED: SODIUM CHLORIDE 0.9% 1000ML 1,000 ML ONE (20:11)
[2019-08-24] MEDS: SODIUM CHLORIDE 0.9% 1000ML 1,000 ML IV SCH (20:35)
[2019-08-24 21:25] LABS: MAGNESIUM 1.7 MG/DL (1.3-2.1); PHOSPHORUS 2.9 MG/DL (2.3-4.7)
[2019-08-24] MEDS: HEPARIN SOD (PORCINE) 5,000 UNIT/ML VIAL SC SCH (21:27)
[2019-08-24 21:28] LABS: BLOOD UREA NITROGEN 8 mg/dL (7-26); BUN/CREATININE RATIO 14 (6-25); CALCIUM 8.8 mg/dL (8.4-10.2); CARBON DIOXIDE 22 mmol/L (22-29); CHLORIDE 88 mmol/L (98-107); CREATININE, SERUM 0.58 mg/dL (0.57-1.11); EST GLOMERULAR FILTRATION RATE > 60 ML/MIN (60-); GLUCOSE 121 mg/dL (74-118)
[2019-08-24 21:31] LABS: SODIUM 119 mmol/L (136-145)
[2019-08-24] MEDS: DEXTROSE 5% 1,000 ML IV SCH (21:57)
[2019-08-24 23:38] LABS: ANION GAP 9.5 mmol/L (8-16); BLOOD UREA NITROGEN 6 mg/dL (7-26); BUN/CREATININE RATIO 13 (6-25); CARBON DIOXIDE 16 mmol/L (22-29); CHLORIDE 133 mmol/L (98-107); CREATININE, SERUM 0.46 mg/dL (0.57-1.11); EST GLOMERULAR FILTRATION RATE > 60 ML/MIN (60-); GLUCOSE 368 mg/dL (74-118)
[2019-08-24 23:46] LABS: CALCIUM 6.1 mg/dL (8.4-10.2); POTASSIUM 2.5 mmol/L (3.5-5.1); SODIUM 156 mmol/L (136-145)
[2019-08-25] VITALS (17 sets, daily range): BP systolic 94–138; BP diastolic 53–109
[2019-08-25 00:07] LABS: PHOSPHORUS 2.2 MG/DL (2.3-4.7)
[2019-08-25 00:13] LABS: CALCIUM IONIZED 1.2 mmol/L (1.09-1.30)
[2019-08-25 00:21] LABS: ANION GAP 9.5 mmol/L (8-16); BLOOD UREA NITROGEN 7 mg/dL (7-26); BUN/CREATININE RATIO 13 (6-25); CARBON DIOXIDE 22 mmol/L (22-29); CHLORIDE 95 mmol/L (98-107); CREATININE, SERUM 0.52 mg/dL (0.57-1.11); EST GLOMERULAR FILTRATION RATE > 60 ML/MIN (60-); GLUCOSE 129 mg/dL (74-118)
[2019-08-25 00:22] LABS: POTASSIUM 3.5 mmol/L (3.5-5.1); SODIUM 123 mmol/L (136-145)
[2019-08-25] MEDS ORDERED: SODIUM CHLORIDE 3% 500 ML IV SCH ×2 (00:27→00:30)
[2019-08-25 00:28] LABS: THYROID STIMULATING HORMONE 0.148 uIU/mL (0.350-4.940)
[2019-08-25 00:42] LABS: THYROID STIMULATING HORMONE 0.258 uIU/mL (0.350-4.940)
--- NOTE | 2019-08-25 01:58 | History and Physical ---
PRIMARY CARE DOCTOR: Dr. Magui Cruz. CHIEF COMPLAINT: Seizure. HISTORY OF PRESENT ILLNESS: This is a 69-year-old woman known to me from previous hospitalization. In fact, I had two admissions with her for hyponatremia. Both episodes were caused by nausea, vomiting, and food poisoning. At this time, the patient is delirious, cannot give any history. However, per free-standing emergency room doctor, the patient was seizing over there. The patient's sodium was found to be 114. The patient was given some normal saline and Dilantin 450 mg IV was given and was urgently sent over to ICU for hypertonic solution. Again, at this time, the patient cannot give any history. We will try to find a family member. PAST MEDICAL AND SURGICAL HISTORY: 1. Hypertension. 2. Hypothyroidism. 3. Neuropathy. 4. Recurrent severe hyponatremia. 5. Possible thyroidectomy. MEDICATIONS: Please see medication reconciliation form. ALLERGIES: PENICILLIN AND IODINE. SOCIAL HISTORY: Quit smoking. FAMILY HISTORY: No diabetes. REVIEW OF SYSTEMS: Unable to obtain at this time, given altered mental status. PHYSICAL EXAMINATION: VITAL SIGNS: Temperature 98.9, pulse 75, respiratory rate 18, and blood pressure 147/96. GENERAL: No acute distress. SKIN: No rash. HEENT: Anicteric. Oropharynx is clear. NECK: Supple. LUNGS: Clear. HEART: Regular rate and rhythm. Normal S1 and S2. ABDOMEN: Soft, nondistended, and nontender. Normoactive bowel sounds. : Deferred. MUSCULOSKELETAL: Painless range of motion. NEUROLOGIC: Disoriented, moving all extremities. PSYCHIATRIC: Normal affect, but abnormal judgment. LABORATORY DATA: Laboratory gómez, white count 11.6, hemoglobin 11.5, platelet count 512. Sodium 114, bicarb 20, anion gap is 9, creatinine 0.58, sugar 133. TSH is 0.286. PT and PTT are normal. UA is unremarkable. Head CT, benign. Chest x-ray, no acute disease. EKG, normal sinus rhythm. ASSESSMENT AND PLAN: 1. Symptomatic severe hyponatremia with seizure. We will admit to ICU. We will consult Nephrology. We will start hypertonic solution. We will correct sodium very slowly and carefully. We will check her sodium level tonight frequently. The patient will put on seizure precaution. Again, we will consult Nephrology. 2. Hypertension, currently stable. We will monitor. 3. Hypothyroidism. Her TSH is slightly suppressed. We will repeat the TSH in the morning. 4. Gastrointestinal/deep vein thrombosis prophylaxis. Pepcid IV and heparin subcu. Rebekahching MD CONCHITA Mayers/IVANA /[id number] cc: [facility]
[2019-08-25 02:34] LABS: ANION GAP 12.5 mmol/L (8-16); BLOOD UREA NITROGEN 6 mg/dL (7-26); BUN/CREATININE RATIO 12 (6-25); CALCIUM 8.2 mg/dL (8.4-10.2); CARBON DIOXIDE 20 mmol/L (22-29); CHLORIDE 96 mmol/L (98-107); CREATININE, SERUM 0.51 mg/dL (0.57-1.11); EST GLOMERULAR FILTRATION RATE > 60 ML/MIN (60-); GLUCOSE 126 mg/dL (74-118); POTASSIUM 3.5 mmol/L (3.5-5.1); SODIUM 125 mmol/L (136-145)
[2019-08-25 03:35] LABS: CREATININE,URINE RANDOM 18.14 mg/dL (47-110)
[2019-08-25 04:28] LABS: BASOPHILS # (AUTO) 0.1 (0.0-0.1); BASOPHILS % 0.9 % (0.0-1.0); EOSINOPHILS # (AUTO) 0.1 (0.0-0.4); EOSINOPHILS % 0.6 % (0.0-6.0); HEMATOCRIT 31.1 % (34.2-44.1); HEMOGLOBIN 10.6 g/dL (12.0-16.0); LYMPHOCYTES # (AUTO) 2.4 (1.0-3.2); LYMPHOCYTES % 29.7 % (18.0-39.1); MEAN CORPUSCULAR HEMOGLOBIN 28.7 pg (28-32); MEAN CORPUSCULAR HGB CONC 34.1 g/dL (31-35); MEAN CORPUSCULAR VOLUME 84.3 fL (81-99); MONOCYTES # (AUTO) 0.6 (0.2-0.8); MONOCYTES % 7.5 % (4.4-11.3); NEUTROPHILS # (AUTO) 4.9 (2.1-6.9); NEUTROPHILS % 60.1 % (38.7-80.0); PLATELET COUNT 385 x10e3/uL (140-360); RED BLOOD COUNT 3.69 x10e6/uL (3.6-5.1); RED CELL DISTRIBUTION WIDTH 13.2 % (11.7-14.4)
[2019-08-25] MEDS: SODIUM CHLORIDE 0.9% 1000ML 1,000 ML IV SCH (04:50)
[2019-08-25 04:51] LABS: ANION GAP 12.3 mmol/L (8-16); BLOOD UREA NITROGEN 6 mg/dL (7-26); BUN/CREATININE RATIO 12 (6-25); CALCIUM 8.5 mg/dL (8.4-10.2); CARBON DIOXIDE 21 mmol/L (22-29); CHLORIDE 96 mmol/L (98-107); EST GLOMERULAR FILTRATION RATE > 60 ML/MIN (60-); GLUCOSE 130 mg/dL (74-118); POTASSIUM 3.3 mmol/L (3.5-5.1); SODIUM 126 mmol/L (136-145)
[2019-08-25 06:37] LABS: ANION GAP 10.3 mmol/L (8-16); BLOOD UREA NITROGEN 6 mg/dL (7-26); BUN/CREATININE RATIO 12 (6-25); CALCIUM 8.6 mg/dL (8.4-10.2); CARBON DIOXIDE 24 mmol/L (22-29); CHLORIDE 98 mmol/L (98-107); CREATININE, SERUM 0.52 mg/dL (0.57-1.11); EST GLOMERULAR FILTRATION RATE > 60 ML/MIN (60-); GLUCOSE 125 mg/dL (74-118); POTASSIUM 3.3 mmol/L (3.5-5.1); SODIUM 129 mmol/L (136-145)
[2019-08-25] MEDS: FAMOTIDINE 20 MG/2 ML VIAL IV SCH ×2 (08:08→16:51)
[2019-08-25] MEDS: HEPARIN SOD (PORCINE) 5,000 UNIT/ML VIAL SC SCH ×2 (08:09→20:52)
[2019-08-25] MEDS: DEXTROSE 5% 1,000 ML IV SCH (08:09)
[2019-08-25] MEDS ORDERED: DOXYCYCLINE HY100 MG PO (08:33)
[2019-08-25] MEDS ORDERED: VIRTUSSIN AC L118 ML PO (08:33)
[2019-08-25] MEDS ORDERED: ZOFRAN8 MG PO (08:33)
[2019-08-25 09:01] LABS: ANION GAP 11.9 mmol/L (8-16); BLOOD UREA NITROGEN 6 mg/dL (7-26); BUN/CREATININE RATIO 11 (6-25); CALCIUM 8.9 mg/dL (8.4-10.2); CARBON DIOXIDE 22 mmol/L (22-29); CHLORIDE 102 mmol/L (98-107); CREATININE, SERUM 0.57 mg/dL (0.57-1.11); EST GLOMERULAR FILTRATION RATE > 60 ML/MIN (60-); GLUCOSE 147 mg/dL (74-118); POTASSIUM 3.9 mmol/L (3.5-5.1); SODIUM 132 mmol/L (136-145)
--- NOTE | 2019-08-25 13:26 | NUR ---
Dr. Casiano notified of morning lab results. gave orders to d/c fluids and BMP checks q2. gave orders for fluid restriction to 40 ounces per day. Patient educated about fluid restriction importance. MD ordered Muller to be removed (Muller d/c at 1235) and CT of chest with and without contrast. Dr. Barragan gave orders to transfer patient to medical surgical floor. Dr. Casiano notified that patient allergic to iodine, MD stated he would like patient to have CT done with contrast. Patient transferred to room 113 with no s/s of distress.
--- NOTE | 2019-08-25 17:35 | Consultation ---
DATE OF CONSULTATION: 08/25/2019 Critical Care Consultation REASON FOR CONSULT: ICU management. HISTORY OF PRESENT ILLNESS: Ms. Kiran is a 69-year-old female here for a seizure in the ICU. The patient was hyponatremic. She was discharged on August 22 when she was admitted for influenza pneumonia. She is breathing better now. She was found to have sodium of 114. She was given normal saline, Dilantin and currently, she is doing well. According to the family member, the patient became confused and minimally responsive when he brought the patient here on the . The patient is denying any complaints of chest pain, nausea, vomiting, or diarrhea. REVIEW OF SYSTEMS: GENERAL: Denies any fever or chills. HEAD: Denies any head trauma. ENT: Denies any earache. CVS: Denies any chest pain. RESPIRATORY: Denies any shortness of breath. The rest of the review of systems are negative except as in HPI. PAST MEDICAL HISTORY: Hypertension, hypothyroidism, severe hyponatremia, and thyroidectomy. FAMILY AND SOCIAL HISTORY: Currently, does not smoke, does not drink. Previous history of smoking. PHYSICAL EXAMINATION: VITAL SIGNS: Temperature 98.9, pulse of 77, blood pressure 123/57, and respiratory rate of 18. CHEST: Clear to auscultation bilaterally. No wheezing. HEART: S1 and S2 audible. ABDOMEN: Soft. EXTREMITIES: No pedal edema. NEUROLOGIC: Awake and alert. LABORATORY DATA: Reviewed. Chest x-ray showing no focal infiltrate. ASSESSMENT/PLAN: Ms. Kiran is a 69-year-old female admitted with possible seizure AND hyponatremia, current problem: 1. Hyponatremia. 2. Seizure. 3. Recently, recovered from influenza. The patient was in the hospital 2 days ago when I saw the patient. PLAN: Currently, respiratory status is stable. Hyponatremia management per Nephrology. Oxygen as needed to keep the O2 saturation more than or equal to 92%. Thank you for this consult. MD SANAM Landa/IVANA /[id number]
--- NOTE | 2019-08-25 17:46 | Progress Note ---
DATE: 08/25/2019 ANIMAL CYTOLOGIST: Dr. Newsome with Nephrology. CHIEF COMPLAINT: Seizure and disorientation due to hyponatremia. SUBJECTIVE: The patient is seen in the ICU. She is alert, awake, and oriented x3, sodium improved. She denies any nausea, vomiting, chest pain, headache. No reported seizures. PHYSICAL EXAMINATION: VITAL SIGNS: Temperature 98.0, pulse is 84, respirations 21, blood pressure is 118/71, pulse ox is 95% on room air. GENERAL: No acute distress. HEENT: Normocephalic, atraumatic. NECK: Supple. CARDIOVASCULAR: Regular rate and rhythm. LUNGS: Clear to auscultation. ABDOMEN: Soft and nontender. NEUROLOGIC: Alert, awake, and oriented x3. MUSCULOSKELETAL: Moves all extremities. SKIN: Dry. PSYCH: Calm. LABORATORY DATA: WBC 8.14, hemoglobin is 10.6, hematocrit is 31.1, and platelet is 385. Sodium is 132, potassium is 3.9, creatinine is 0.57, estimated GFR is greater than 60, calcium is 8.9. Uric acid is 2.3. IMPRESSION: 1. Symptomatic severe hyponatremia. CT of brain unremarkable, sodium is improving with hypertonic solution in the ICU. No reported seizures overnight. Sodium is now 132. Continue to monitor closely. Nephrology has been consulted. She is on strict I and Os, 1.5 L close to 40 ounces per day. 2. Reported seizures. Likely due to hyponatremia. No reports of seizures overnight. 3. Hypothyroidism. We will continue home medications. 4. Deep vein thrombosis prophylaxis. Heparin subcu. PLAN: Continue strict I and O, monitor sodium and electrolytes. She is on fluid restriction 40 ounces per day. Further recommendations to follow. Dictated by CONNIE Landrum Rebekahching Jag Marsh MD MY/MODL /[id number] Seen and examined, updated family at the bedside, hold levothyroxine given suppressed TSH. Agree with findings and plan as documented by CONNIE Schuler. MTDD
--- NOTE | 2019-08-25 18:46 | Consultation ---
DATE OF CONSULTATION: 08/25/2019 HISTORY OF PRESENT ILLNESS: A 69-year-old female who had some disorientation at home, which was relatively rapid development. She was taken to Urgent Care where they did blood tests, found to have hyponatremia. She was sent here to the hospital where apparently, she had a spell of 60 seconds where her eyes remained open, her mouth remain closed, her respiratory rate decreased, and she would not respond to any verbal stimuli for about 60 seconds and then she responded right back to normal according to daughter, who witnessed the episode. There was no tonic-clonic movement noted. She has had hyponatremia a couple of times in the past. Initial serum sodium was 114, was treated by my colleague and serum sodium has gradually improved. Most recent potassium is 3.9 with a creatinine of 0.57. Calcium level is 8.9. Serum osmolality was 316, this was at 2300 hours. At that time, serum sodium was 153. She does not drink any alcohol, indulge in any other health food or natural medicine. She is perfectly awake, alert, and oriented x3 now, moving all 4 extremities well, asking a lot of questions, several family members present. Has an indwelling Muller. ALLERGIES: SHE IS ALLERGIC TO PENICILLIN AND IODINE. MEDICATIONS: She was given one time dose of Dilantin. She is on heparin subcu for DVT prophylaxis. Her IV fluids have been stopped workup. WORKUP: CT brain shows no acute intracranial abnormalities. Chest x-ray, stable pulmonary hyperinflation, cardiomegaly and pulmonary venous hypertension. Two airspace opacity in the right lung are stable. The patient denies any cough or weight loss. SOCIAL HISTORY: She is a previous smoker. She has smoked for about 50 years. She has quit now. PHYSICAL EXAMINATION: GENERAL: Awake, alert, and oriented x3, lying supine, in no apparent distress. VITAL SIGNS: Blood pressure is 130/60, pulse rate 80, respiratory rate 14. HEAD AND NECK: Cornea clear. Oral mucosa moist. Neck veins flat. LUNGS: Relatively clear. HEART: S1 and S2 audible. ABDOMEN: Soft, nontender. No apparent visceromegaly. EXTREMITIES: Lower extremity, no edema. IMPRESSION AND PLAN: Hyponatremia, clinically asymptomatic at the moment. FL[employer]ICATION[employer] OFFICER exam perfectly normal. Chest x-ray as far as my exam is concerned, shows some nodules. She is a prior tobacco smoker for several decades. I will order a CT scan with and without contrast of the chest to rule out bronchogenic carcinoma. Discussed with Dr. Majano. I will order uric acid levels as specimen, sent to lab when she first came to the ER. Also obtained thyroid function tests. Her initial urinalysis was fairly concentrated, 1025 was the specific gravity, which relatively goes against excessive fluid intake. She does indulge in a lot of fluid intake including Gatorade and diet sodas. So, I have asked her to restrict her p.o. fluid intake to about 40 ounces and discussed with both son as well as daughter in a 24-hour period. Regular salt diet for now. TSH level is low. I will defer to Dr. Marsh to adjust the thyroid medication. As regards to her seizure or "seizure," this looks more like an absent seizure or petit mal seizure to me. May want to consider a neuro input at some point in time. Please see orders. MD SIMRAN Pang/IVANA /[id number]
[2019-08-26 00:05] VITALS: BP 126/62
[2019-08-26 04:00] VITALS: BP 106/65
[2019-08-26 08:00] VITALS: BP 111/60
[2019-08-26 08:49] VITALS: BP 111/60
[2019-08-26] MEDS: HEPARIN SOD (PORCINE) 5,000 UNIT/ML VIAL SC SCH (09:45)
[2019-08-26] MEDS: FAMOTIDINE 20 MG/2 ML VIAL IV SCH (09:45)
[2019-08-26 12:00] VITALS: BP 134/85
--- NOTE | 2019-08-26 12:45 | Diagnostic Imaging Report ---
CT of the chest, without contrast, 08/26/2019. History: Abnormal chest x-ray. Comparison: Chest CT dated 08/16/2019, chest x-ray dated 08/24/2019. Technique: Multidetector CT scanning of the chest was performed from the level of the thoracic inlet to the upper abdomen without IV or oral contrast. Dose reduction: The examination was performed according to departmental dose-optimization program which includes automated exposure control, adjustment of the mA and/or kV according to patient size and/or use of iterative reconstruction technique. Findings: There is no axillary, mediastinal, or hilar lymphadenopathy. The heart is within normal limits of size. There is no pericardial effusion. The thoracic aorta is of normal course and caliber. Trachea and central airways are clear. The lungs demonstrate upper lobe predominant centrilobular emphysematous changes. Improving groundglass opacities are noted in the right upper lobe and middle lobe when compared to examination dated 08/16/2019 suggesting improving infectious process. No new parenchymal opacities or consolidation is identified. There is no pleural effusion. There is no pneumothorax. Limited evaluation of the upper abdomen demonstrates cholelithiasis. No focal hepatic lesions are identified just portions of the liver. The spleen is within normal limits. No acute osseous abdomen bodies identified IMPRESSION: 1. Improving groundglass opacities in the right upper and middle lobes when compared to examination dated 08/16/2019 likely reflecting improving infectious or inflammatory process. No new consolidation identified. 2. Mild centrilobular emphysematous changes. 3. Cholelithiasis Signed by: Daryl Medellin MD on 08/26/2019 12:42 PM
--- NOTE | 2019-08-26 14:47 | NUR ---
IMM explained to patient, patient signed, copy to patient, copy to chart.
[2019-08-26 14:54] LABS: ANION GAP 9.3 mmol/L (8-16); BLOOD UREA NITROGEN 10 mg/dL (7-26); BUN/CREATININE RATIO 17 (6-25); CARBON DIOXIDE 27 mmol/L (22-29); CHLORIDE 100 mmol/L (98-107); CREATININE, SERUM 0.58 mg/dL (0.57-1.11); EST GLOMERULAR FILTRATION RATE > 60 ML/MIN (60-); GLUCOSE 108 mg/dL (74-118); POTASSIUM 3.3 mmol/L (3.5-5.1); SODIUM 133 mmol/L (136-145)
[2019-08-26] MEDS ORDERED: POTASSIUM CHLORIDE 20 MEQ TAB CR PO NR (16:00)
[2019-08-26 16:50] VITALS: BP 121/70
--- NOTE | 2019-08-27 13:50 | Discharge Summary ---
PRIMARY CARE DOCTOR: Dr. Magui Cruz FINAL DIAGNOSIS: Severe symptomatic hyponatremia with seizure. SECONDARY DIAGNOSES: 1. Hypertension. 2. Hypothyroidism. CONSULTS: 1. Dr. Newsome, Nephrology. 2. Dr. Majano, dermatology technician. PROCEDURES/STUDIES PERFORMED: Chest CT and head CT. HISTORY: Per H and P. HOSPITAL COURSE: The patient initially was put on 30% sodium. Her sodium corrected slowly. The patient's altered mental status resolved and did not have any more seizure. Her TSH has suppressed and it was repeated and was still suppressed. Therefore, the patient was told to hold her levothyroxine until she follows up with her PCP next week. At that time, dosage obviously can be decreased. As far as her recurrent hyponatremia, there is really no good etiology at this time, likely due to too much free water intake at home. The patient and also her family members know that she has to be on fluid restriction. A chest CT was done. There was no malignancy. She does have emphysematous changes and also improving ground-glass opacity reflecting improving infectious or inflammatory process. The patient was seen and examined today. It took 32 minutes total to discharge this patient. Family members were updated in detail. CONDITION ON DISCHARGE: Improved. DISCHARGE MEDICATIONS: Please see medication reconciliation form. MD CONCHITA Edwards/BARBL /[id number] cc: [facility] in [place]
== END 2019-08-26 17:33 | disposition home or self-care (01) | DRG 100 ==
LOC: FSED 16:33 → ERHOLD 18:44 → ICU 19:46 → MED/SURG 08-25 13:10
PROVIDERS: ADMIT Internal Medicine; ATTEND Internal Medicine
DX: G40.209 Localization-related (focal) (partial) symptomatic epilepsy and epileptic syndromes with complex partial seizures, not intractable, without status epilepticus (principal); G93.41 Metabolic encephalopathy; E87.1 Hypo-osmolality and hyponatremia; R41.82 Altered mental status, unspecified; I10 Essential (primary) hypertension; E03.9 Hypothyroidism, unspecified; Z88.0 Allergy status to penicillin; Z87.891 Personal history of nicotine dependence; R91.8 Other nonspecific abnormal finding of lung field; Z91.041 Radiographic dye allergy status
CPT/HCPCS: 36415; 70450; 71045; 71250; 80048; 80053; 81001; 82570; 82947; 83605; 83735; 83935; 84100; 84295; 84300; 84443; 84520; 84550; 85025; 85610; 85730; 87040; 87086; 93005; 99285; J1165; J1644; J7030; J7040; J7070

== ENCOUNTER 2019-12-27 19:09 | Emergency (ER) | payer MEDICARE ==
[~2019-12-27] VITALS: Ht 167.6 cm; Wt 92.5 kg
[~2019-12-27 19:09] MED LIST changes: +DOXYCYCLINE HY100 MG PO; +VIRTUSSIN AC L118 ML PO; +ZOFRAN8 MG PO
[2019-12-27] MEDS ORDERED: VECURONIUM BROMIDE FOR INJ 20 MG VIAL IV ONE (19:10)
[2019-12-27] MEDS ORDERED: WATER STERILE 10 ML VIAL INJ ONE (19:10)
[2019-12-27] MEDS ORDERED: ETOMIDATE 40 MG/ 20ML VIAL IV ONE (19:10)
[2019-12-27] MEDS ORDERED: LORAZEPAM INJ 2 MG/ML VIAL IV STA (19:16)
[2019-12-27] MEDS ORDERED: CEFEPIME 1GM/NS 0.9% 50 ML 50 ML IV STA (19:23)
[2019-12-27] MEDS ORDERED: FOSPHENYTOIN 50 MG/ML VIAL IV STA (19:23)
[2019-12-27] MEDS ORDERED: VANCOMYCIN 1GM/NS 250 ML 250 ML IV STA (19:23)
[2019-12-27] MEDS ORDERED: LORAZEPAM INJ 2 MG/ML VIAL IV ONE (19:30)
[2019-12-27] MEDS ORDERED: SODIUM CHLORIDE 0.9% 1000ML 1,000 ML IV STA ×2 (19:57→22:32)
[2019-12-27] MEDS ORDERED: FOSPHENYTOIN 1,000 MG in SODIUM CHLORIDE 0.9% 50ML 50 ML IV NR (20:00)
[2019-12-27] MEDS ORDERED: SODIUM BICARBONATE 8.4% 50 ML VIAL IV STA (20:07)
--- NOTE | 2019-12-27 20:32 | Diagnostic Imaging Report ---
History: AMS Comparison studies: Head CT on 08/24/2019 Technique: Axial images were obtained from the skull base to the vertex. Coronal and sagittal reconstructions obtained from the axial data. Dose modulation, iterative reconstruction, and/or weight based adjustment of the mA/kV was utilized to reduce the radiation dose to as low as reasonably achievable. Intravenous contrast: None Findings: Scalp/skull: No abnormalities. No fractures, blastic or lytic lesions. Extra-axial spaces: No masses. No fluid collections. Brain sulci: Appropriate for age. Ventricles: Normal in size and configuration. No hydrocephalus. Parenchyma: No abnormal densities. No masses, hemorrhage, acute or chronic cortical vascular insults. Sellar/suprasellar region: No abnormalities Craniocervical junction: Patent foramen magnum. No Chiari one malformation. Incidental findings: Atherosclerotic calcifications in the carotid siphon. IMPRESSION: 1. No abnormalities. 2. No changes when compared to the head CT on 08/24/2019. Signed by: Dr. Michael Parker M.D. on 12/27/2019 8:28 PM
[2019-12-27] MEDS ORDERED: VANCOMYCIN 1GM/NS 250 ML 250 ML ONE (22:26)
[2019-12-27] MEDS ORDERED: ETOMIDATE 2 MG/ML 10 ML INJ IV STA (22:38)
[2019-12-27] MEDS ORDERED: VECURONIUM BROMIDE FOR INJ 20 MG VIAL IV STA (22:38)
--- NOTE | 2019-12-27 23:18 | Diagnostic Imaging Report ---
EXAMINATION: CXR 1 [facility] INDICATION: Seizure/ r/o aspiration, check ett placement COMPARISON: CT Chest 08/26/2019. FINDINGS: TUBES and LINES: ET tue terminates 3.9 cm above the jaimie. LUNGS: Lungs are well inflated. Mild patchy left basilar opacity. No evidence of pulmonary edema. PLEURA: No pleural effusion or pneumothorax. HEART AND MEDIASTINUM: The cardiomediastinal silhouette is unremarkable. There are atherosclerotic calcifications within the aorta. BONES AND SOFT TISSUES: No acute osseous lesion. Soft tissues are unremarkable. UPPER ABDOMEN: No free air under the diaphragm. IMPRESSION: ET tube terminates 3.9 cm above the jaimie. No evidence of pneumothorax. Mild patchy left basilar opacity, which may represent aspiration or atelectasis in the appropriate clinical setting. Signed by: Dr. Cory Romero MD on 12/27/2019 11:15 PM
== END 2019-12-27 22:50 | disposition other institution (70) ==
LOC: FSED 19:09
DX: G40.401 Other generalized epilepsy and epileptic syndromes, not intractable, with status epilepticus (principal); R65.10 Systemic inflammatory response syndrome (SIRS) of non-infectious origin without acute organ dysfunction; J69.0 Pneumonitis due to inhalation of food and vomit; E87.1 Hypo-osmolality and hyponatremia; E87.2 Acidosis; E86.0 Dehydration
CPT/HCPCS: 31500; 36415; 51700; 70450; 71045; 83605; 83735; 87040; 99285; J0692; J2060; J3370; J7030; Q2009; 93005